=== PATIENT | male | born 1950 | race Caucasian/White ===

== ENCOUNTER 2018-08-25 10:43 | Day surgery (SDC) | payer OTHER, BC ==
--- OUTSIDE RECORDS SUMMARY | 2018-08-25 10:45 | XMS REPORT | Clinical Summary ---
:1950 Author Organization [facility] Address [address] [place] [address] Care Team Providers Name Role Phone Asked, No Pcp Primary Care Provider Unavailable Allergies Active Allergy Reactions Severity Noted Date Comments Peanut Hives 01/31/2017 Peanut Oil 01/31/2017 Current Medications Prescription Sig. Disp. Refills Start Date End Date Status metFORMIN (GLUCOPHAGE) 1,000 Take 1,000 mg Active mg tablet by mouth 2 (two) times a day with meals. linagliptin (TRADJENTA) 5 mg Take 5 mg by Active tablet mouth daily with breakfast. atorvastatin (LIPITOR) 20 MG Take 20 mg by Active tablet mouth daily. aspirin 325 MG tablet Take 325 mg by Active mouth daily. baclofen (LIORESAL) 10 MG Take 10 mg by Active tablet mouth 2 (two) times a day. bimatoprost (LUMIGAN) 0.01 % 1 drop nightly. Active ophthalmic drops azelastine (OPTIVAR) 0.05 % 1 drop 2 (two) Active ophthalmic solution times a day. metoprolol tartrate Take 50 mg by Active (LOPRESSOR) 50 mg tablet mouth 2 (two) times a day. gabapentin (NEURONTIN) 600 mg Take 600 mg by Active tablet mouth 2 (two) times a day. hydroCHLOROthiazide Take 25 mg by Active (HYDRODIURIL) 25 MG tablet mouth daily. losartan (COZAAR) 100 MG Take 100 mg by Active tablet mouth daily. Active Problems Not on file Family History Medical History Relation Name Comments Heart disease Brother Stroke Brother Heart disease Father Prostate cancer Father Stroke Father ALS Mother Diabetes Mother Hypertension Mother Relation Name Status Comments Brother Father Mother Social History Tobacco Use Types Packs/Day Years Used Date Never Smoker Alcohol Use Drinks/Week oz/Week Comments Yes occasionally Sex Assigned at Date Recorded Not on file Last Filed Vital Signs Not on file Plan of Treatment Health Maintenance Due Date Last Done Comments COLON CANCER SCREENING 2001 SHINGRIX VACCINE (#1) 2001 ZOSTER VACCINE 2011 PNEUMOCOCCAL POLYSACCHARIDE VACCINE AGE 65 AND OVER 01/06/2016 PNEUMOCOCCAL-13 01/06/2016 INFLUENZA VACCINE 05/28/2018 Results Not on fileafter 08/24/2017 Insurance Payer Benefit Plan / Group Subscriber ID Type Phone Address BCBS BCBS PAR/TRAD PLAN xxxxxxxxxxxx Indemnity MEDICARE MEDICARE PART A AND B xxxxxxxxxx Medicare [place], [place] Home: [facility] [address] [phone] [place], [place] [phone]
[2018-08-25] MEDS ORDERED: PHENYLEPHRINE 10% OPTH 5ML ONE (11:05)
[2018-08-25] MEDS ORDERED: CYCLOPENTOLATE 1% OPTH 2 ML ONE (11:05)
[2018-08-25] MEDS ORDERED: NA CHLORIDE 0.9% 500 ML ONE (11:05)
[2018-08-25] MEDS: TETRACAINE HCL 0.5% 2ML OPTH ONE ×2 (11:23→12:00)
[2018-08-25] MEDS: LIDOCAINE 2% MPF 5 ML VIAL ONE ×2 (11:24→12:01)
[2018-08-25] MEDS: BUPIVACAINE 0.25% PF 10 ML VIAL ONE ×2 (11:25→12:01)
[2018-08-25] MEDS ORDERED: CYCLOPENTOLATE 1% OPTH 2 ML OPTH ONE ×2 (11:28→11:33)
[2018-08-25] MEDS ORDERED: PHENYLEPHRINE 10% OPTH 5ML OPTH ONE ×2 (11:28→11:33)
[2018-08-25] MEDS ORDERED: BALANCED SALT IRRIG PLAIN 500 ML BTL IRR ONE (11:37)
[2018-08-25] MEDS ORDERED: EPINEPHRINE/PF 1 MG/ML AMP ONE (11:37)
[2018-08-25] MEDS ORDERED: DUOVISC 1 KIT OPTH ONE (11:37)
[2018-08-25] MEDS ORDERED: MOXIFLOXACIN HCL 10 DROPS/ML **OR USE OPTH ONE (11:38)
[2018-08-25] MEDS ORDERED: LIDOCAINE 2% MPF 5 ML VIAL ONE (11:54)
[2018-08-25] MEDS ORDERED: PROPOFOL 200 MG/20 ML VIAL IV ONE (11:54)
--- NOTE | 2018-08-25 12:58 | P.BOP ---
Preoperative diagnosis: Nuclear sclerotic cataract and regular astigmatism OD Postoperative diagnosis: Same Primary procedure: Phacoemulsification with Toric IOL OD Estimated blood loss: None Anesthesia: Local (Subtenon's infusion with anesthesia for cataract surgery) Complications: None Implants: [id number] +20.0 @ 23 Transferred to: Other (Day surgery) Condition: Good
[2018-08-25] MEDS ORDERED: NS 0.9% VIAL 10 ML ONE (13:14)
[2018-08-25 13:21] VITALS: BP 140/72; TEMP 96.1; O2SAT 98
--- NOTE | 2018-08-25 23:43 | OP ---
Date of Procedure: 08/25/2018 Surgeon: Makenzie Laurent MD Anesthesiologist: Hilton Galarza CRNA, Brii Dubose CRNA, and Marco Garcia M.D. Preoperative Diagnosis: Nuclear sclerotic cataract, right eye and regular astigmatism. Operation Performed: Phacoemulsification with toric intraocular lens implant, right eye. Anesthesia: Per cataract surgery. Complications: None. Description Of Procedure: In day surgery, the patient was prepped with Betadine and draped. A conju nctival incision was made in the inferior nasal quadrant with Hector scissors. A sub-Tenon block c onsisting of a 1:1 mixture of 2% Xylocaine and 0.25% bupivacaine was placed through the conjunctival incision with a blunt cannula. A Honan balloon was placed over the eye and the patient was transferr ed to the operating room. In the operating room the patient was prepped and draped in the usual sterile fashion for ophthalmic surgery. A lid speculum was placed in the right eye. Two paracentesis sites were made superiorly an d inferiorly in the limbal cornea. Viscoat was placed in the anterior chamber and a crescent blade w as used to make a corneal groove and tunnel, and a keratome was used to enter the anterior chamber. Provisc was placed in the anterior chamber and a 360 degree capsulotomy was performed with a cystitom e. The lens was hydrodissected with BSS and rotated freely. The lens was removed with a stop and ch op technique. A 5.59 phaco CDE was used to remove the lens. Residual cortex was removed with the ir rigation and aspiration. Provisc was placed in the capsular bag. A [id number] +20.0 at 23 lens was plac ed in the capsular bag without complications. Irrigation and aspiration was used to remove residual viscoelastic. The paracentesis sites were hydrated with BSS. The wound and paracentesis sites were inspected and found to be watertight. Vigamox 0.07 cc was placed intracamerally at the end of the pr ocedure. The eye was irrigated with balanced salt solution. The eye was patched with a soft cotton patch and Chamberlain metal shield. The patient was returned to day surgery in good condition. Comments: Discharge Instructions: Mr. Capone is discharged to home in good condition and is to follow up with Dr. Laurent in the morning. JHL/MODL Voice ID: [id number] Report ID: [id number]
== END 2018-08-25 13:24 | disposition home or self-care (01) ==
LOC: OR 10:43
PROVIDERS: ATTEND Ophthalmology Retina Specialist
PROC: 08RJ3JZ Replacement of Right Lens with Synthetic Substitute, Percutaneous Approach (ICD-10-PCS; principal; 2018-08-25 10:30)
DX: H25.11 Age-related nuclear cataract, right eye (principal); H52.221 Regular astigmatism, right eye; H40.10X0 Unspecified open-angle glaucoma, stage unspecified; E11.9 Type 2 diabetes mellitus without complications; I10 Essential (primary) hypertension; E78.00 Pure hypercholesterolemia, unspecified; Z79.82 Long term (current) use of aspirin; Z85.46 Personal history of malignant neoplasm of prostate; Z95.1 Presence of aortocoronary bypass graft; Z83.511 Family history of glaucoma; Z83.3 Family history of diabetes mellitus; Z80.9 Family history of malignant neoplasm, unspecified; Z82.49 Family history of ischemic heart disease and other diseases of the circulatory system; I25.10 Atherosclerotic heart disease of native coronary artery without angina pectoris
CPT/HCPCS: 66984; 82962; J0171; J2704; V2787

== ENCOUNTER 2018-10-13 09:56 | Day surgery (SDC) | payer OTHER, BC ==
--- OUTSIDE RECORDS SUMMARY | 2018-10-13 09:59 | XMS REPORT | Clinical Summary ---
:1950 Author Organization [facility] Address [address] [place] [address] Care Team Providers Name Role Phone Asked, No Pcp Primary Care Provider Unavailable Allergies Active Allergy Reactions Severity Noted Date Comments Peanut Hives 01/31/2017 Peanut Oil 01/31/2017 Medications Medication Sig Dispensed Refills Start Date End Date Status metFORMIN (GLUCOPHAGE) Take 1,000 mg 0 Active 1,000 mg tablet by mouth 2 (two) times a day with meals. linagliptin (TRADJENTA) 5 Take 5 mg by 0 Active mg tablet mouth daily with breakfast. atorvastatin (LIPITOR) 20 Take 20 mg by 0 Active MG tablet mouth daily. aspirin 325 MG tablet Take 325 mg 0 Active by mouth daily. baclofen (LIORESAL) 10 MG Take 10 mg by 0 Active tablet mouth 2 (two) times a day. bimatoprost (LUMIGAN) 0.01 1 drop 0 Active % ophthalmic drops nightly. azelastine (OPTIVAR) 0.05 % 1 drop 2 0 Active ophthalmic solution (two) times a day. metoprolol tartrate Take 50 mg by 0 Active (LOPRESSOR) 50 mg tablet mouth 2 (two) times a day. gabapentin (NEURONTIN) 600 Take 600 mg 0 Active mg tablet by mouth 2 (two) times a day. hydroCHLOROthiazide Take 25 mg by 0 Active (HYDRODIURIL) 25 MG tablet mouth daily. losartan (COZAAR) 100 MG Take 100 mg 0 Active tablet by mouth daily. Active Problems Not on file [...] Assigned at Date Recorded Not on file Job Start Date Occupation Industry Not on file Not on file Not on file Travel History Travel Start Travel End No recent travel history available. Last Filed Vital Signs Not on file Plan of Treatment Health Maintenance Due Date Last Done Comments COLON CANCER SCREENING 2001 SHINGLES VACCINES (1 of 2) 2001 PNEUMOCOCCAL POLYSACCHARIDE VACCINE AGE 65 AND OVER 01/06/2016 PNEUMOCOCCAL-13 01/06/2016 INFLUENZA VACCINE 05/28/2018 Results Not on fileafter 10/12/2017 Insurance Payer Benefit Plan / Group Subscriber ID Type Phone Address BCBS BCBS PAR/TRAD PLAN xxxxxxxxxxxx Indemnity MEDICARE MEDICARE PART A AND B xxxxxxxxxx Medicare [place], [place] Advance Directives Patient has advance care planning documents on file. For more information, please contact:[place] [address]
[2018-10-13] MEDS ORDERED: DUOVISC 1 KIT OPTH ONE (10:16)
[2018-10-13] MEDS ORDERED: NS 0.9% VIAL 10 ML ONE (10:16)
[2018-10-13] MEDS ORDERED: EPINEPHRINE/PF 1 MG/ML AMP ONE (10:16)
[2018-10-13] MEDS ORDERED: BALANCED SALT IRRIG PLAIN 500 ML BTL IRR ONE (10:16)
[2018-10-13] MEDS ORDERED: MOXIFLOXACIN HCL 10 DROPS/ML **OR USE OPTH ONE (10:16)
[2018-10-13] MEDS ORDERED: LIDOCAINE 2% MPF 5 ML VIAL ONE ×2 (10:25→11:07)
[2018-10-13] MEDS ORDERED: CYCLOPENTOLATE 1% OPTH 2 ML ONE (10:25)
[2018-10-13] MEDS ORDERED: TETRACAINE HCL 0.5% 2ML OPTH ONE (10:25)
[2018-10-13] MEDS ORDERED: NA CHLORIDE 0.9% 500 ML ONE (10:26)
[2018-10-13] MEDS ORDERED: BUPIVACAINE 0.25% PF 30 ML VIAL ONE (10:26)
[2018-10-13] MEDS ORDERED: PHENYLEPHRINE 10% OPTH 5ML ONE (10:26)
[2018-10-13] MEDS ORDERED: PHENYLEPHRINE 10% OPTH 5ML OPTH ONE ×2 (10:30→10:35)
[2018-10-13] MEDS ORDERED: CYCLOPENTOLATE 1% OPTH 2 ML OPTH ONE ×2 (10:30→10:35)
[2018-10-13] MEDS ORDERED: PROPOFOL 200 MG/20 ML VIAL IV ONE (11:07)
--- NOTE | 2018-10-13 12:20 | P.BOP ---
Preoperative diagnosis: Nuclear sclerotic cataract and open angle glaucoma OS Postoperative diagnosis: Same Primary procedure: Phacoemulsification with IOL OS Estimated blood loss: None Anesthesia: Local (Subtenon's infusion with anesthesia for cataract surgery) Complications: None Fluids & blood products: [id number] +20.5 @ 170 Transferred to: Other (Day surgery) Condition: Good
[2018-10-13 13:30] VITALS: BP 134/66; TEMP 96.3; O2SAT 100
--- NOTE | 2018-10-13 23:30 | OP ---
Date of Procedure: 10/13/2018 Surgeon: Makenzie Laurent MD Anesthesiologist: Hilton Galarza C.R.N.A. And Jeffry Chen M.D. Preoperative Diagnosis: Nuclear sclerotic cataract, regular astigmatism and open-angle glaucoma, OS (left eye). Operation Performed: Phacoemulsification with Toric intraocular lens implant, left eye. Anesthesia: Per cataract surgery. Complications: None. Description Of Procedure: In day surgery, the patient was prepped with Betadine and draped. A conjunctival incision was made in the inferior nasal quadrant with Hector scissors. A sub-Tenon block consisting of a 1:1 mixture of 2% Xylocaine and 0.25% bupivacaine was placed through the conjunctival incision with a blunt cannula. A Honan balloon was placed over the eye and the patient was transferred to the operating room. In the operating room, the patient was prepped and draped in the usual sterile fashion for ophthalmic surgery. A lid speculum was placed in the OS. Two paracentesis sites were made superiorly and inferiorly in the limbal cornea. Viscoat was placed in the anterior chamber and a crescent blade was used to make a corneal groove and tunnel, and a keratome was used to enter the anterior chamber. Provisc was placed in the anterior chamber and a 360-degree capsulotomy was performed with a cystitome. The lens was hydrodissected with BSS and rotated freely. The lens was removed with a stop and chop technique. A 4.85 phaco CDE was used to remove the lens. Residual cortex was removed with the irrigation and aspiration. Provisc was placed in the capsular bag. A [id number] +20.5 at 170 degrees lens was placed in the capsular bag without complications. Irrigation and aspiration were used to remove residual viscoelastic. The paracentesis sites were hydrated with BSS. The wound and paracentesis sites were inspected and found to be watertight. Vigamox 0.07 cc was placed intracamerally at the end of the procedure. The eye was irrigated with balanced salt solution. The eye was patched with a soft cotton patch and Chamberlain metal shield. The patient was returned to day surgery in good condition. Discharge Instructions: Mr. Capone is discharged to home in good condition and is to follow up with Dr. Laurent in the morning. ETHEL/VERONICA Voice ID: [id number] Report ID: [id number] MTDD
== END 2018-10-13 12:43 | disposition home or self-care (01) ==
LOC: OR 09:56
PROVIDERS: ATTEND Ophthalmology Retina Specialist
PROC: 08RK3JZ Replacement of Left Lens with Synthetic Substitute, Percutaneous Approach (ICD-10-PCS; principal; 2018-10-13 10:45)
DX: H25.12 Age-related nuclear cataract, left eye (principal); H40.10X0 Unspecified open-angle glaucoma, stage unspecified; H52.222 Regular astigmatism, left eye; E11.9 Type 2 diabetes mellitus without complications; I10 Essential (primary) hypertension; I51.9 Heart disease, unspecified; E78.00 Pure hypercholesterolemia, unspecified; Z91.010 Allergy to peanuts; Z85.46 Personal history of malignant neoplasm of prostate; Z95.1 Presence of aortocoronary bypass graft; Z83.511 Family history of glaucoma; Z83.3 Family history of diabetes mellitus; Z82.49 Family history of ischemic heart disease and other diseases of the circulatory system
CPT/HCPCS: 66984; 82962; J0171; J2704; V2787

== ENCOUNTER 2018-12-18 09:56 | Inpatient (IN) | payer OTHER, BC ==
--- OUTSIDE RECORDS SUMMARY | 2018-12-18 09:59 | XMS REPORT | Clinical Summary ---
:1950 Author Organization [facility] Address [address] [place] [address] Care Team Providers Name Role Phone Asked, [...] Comments COLON CANCER SCREENING 2001 SHINGLES VACCINES (#1) 2001 65+ PNEUMOCOCCAL VACCINE (1 of 2 - PCV13) 01/06/2016 PNEUMOCOCCAL POLYSACCHARIDE VACCINE AGE 65 AND OVER 01/06/2016 INFLUENZA VACCINE 05/28/2018 Results Not on fileafter 12/17/2017 Insurance Payer Benefit Plan / Group Subscriber ID Type Phone Address BCBS BCBS PAR/TRAD PLAN xxxxxxxxxxxx Indemnity MEDICARE MEDICARE PART A AND B xxxxxxxxxx Medicare [place], [place] Advance Directives Patient has advance care planning documents on file. For more information, please contact:You [address] [place] [address]
--- NOTE | 2018-12-18 11:14 | RAD REPORT ---
EXAM DESCRIPTION: RAD - Chest Single View - 12/18/2018 10:53 am CLINICAL HISTORY: Chest pain COMPARISON: September 2017 TECHNIQUE: AP portable chest image was obtained 1048 hour . FINDINGS: Lung volumes are low. No peripheral mass or consolidation. Interstitial pattern is not emelyn laura different when adjusting for the lower lung volumes. Failure or volume overload not suspected. S ternotomy wires are in place. Heart and vasculature are normal. No measurable pleural effusion and no pneumothorax. No acute bony abnormality seen. No acute aortic findings suspected. IMPRESSION: Shallow inspiration film without acute finding. No significant change from 2017.
[2018-12-18 11:34] LABS: Absolute Monocytes 0.4 K/uL (0.1-1.3); Absolute Neutrophil 3.2 K/uL (1.8-8.0); Basophils % 0.9 % (0-1.3); Eosinophils % 2.1 % (0-4.4); Hematocrit 40.9 % (39.6-49.0); Lymphocytes % 21.4 % (15.3-44.8); MPV 8.4 fL (7.6-11.3)
[2018-12-18 11:35] LABS: Protime INR 0.98
[2018-12-18 11:49] LABS: ALT/SGPT 70 U/L (12-78); AST/SGOT 36 U/L (15-37); Albumin 3.6 g/dL (3.4-5.0); Alkaline Phosphatase 84 U/L (45-117); BUN Blood Urea Nitrogen 18 mg/dL (7-18); Bicarbonate 27 mmol/L (21-32); Bilirubin Direct 0.2 mg/dL (0-0.2); Bilirubin Total 0.6 mg/dL (0.2-1.0); Glucose Level 183 mg/dL (74-106); NT PRO-BNP 93 pg/mL (<125); Potassium 3.9 mmol/L (3.5-5.1); Sodium Level 138 mmol/L (136-145); Troponin (Emerg Dept Use Only) < 0.02 ng/mL (0.0-0.045)
--- NOTE | 2018-12-18 12:01 | ER ---
Nurse's Notes [facility] Name: Meredith Capone Jr Age: 68 yrs Sex: Male : 1950 Arrival Date: 12/18/2018 Time: 09:59 Bed 17 Private MD: Justin Jasmine H Diagnosis: Chest pain, unspecified Presentation: 12/18 10:10 Presenting complaint: Patient states: "I was just sitting up watching TV when I started aa5 having chest pain on the left side of my chest, my left arm, and the left side of my back". Pt reports pain was relieved after taking a Nitro at 0915. Pt currently denies chest pain. 10:10 Transition of care: patient was not received from another setting of care. Onset of aa5 symptoms was December 18, 2018. Risk Assessment: Do you want to hurt yourself or someone else? Patient reports no desire to harm self or others. Initial Sepsis Screen: Does the patient meet any 2 criteria? No. Patient's initial sepsis screen is negative. Does the patient have a suspected source of infection? No. Patient's initial sepsis screen is negative. Care prior to arrival: None. 10:10 Method Of Arrival: Wheelchair aa5 10:10 Acuity: CARMINA 2 aa5 Triage Assessment: 10:20 General: Appears in no apparent distress. uncomfortable, Behavior is calm, cooperative, hj appropriate for age. Pain: Complains of pain in chest. Cardiovascular: Capillary refill < 3 seconds Patient's skin is warm and dry. Historical: - Allergies: 10:10 Peanut; aa5 - PMHx: 10:10 Diabetes - NIDDM; Hyperlipidemia; Hypertension; aa5 - PSHx: 10:10 CABG; Carpal Tunnel Repair; neck sx; aa5 - Immunization history:: Adult Immunizations. - Social history:: Smoking status: Patient/guardian denies using tobacco. - Ebola Screening: : No symptoms or risks identified at this time. Screenin:19 Abuse screen: Denies threats or abuse. Denies injuries from another. Nutritional hj screening: No deficits noted. Tuberculosis screening: No symptoms or risk factors identified. Fall Risk None identified. Assessment: 10:23 Pain: Pain radiates to back and left arm Pain began. hj 10:23 General: Appears in no apparent distress. uncomfortable, Behavior is calm, cooperative, hj appropriate for age. Neuro: Level of Consciousness is awake, alert, obeys commands, Oriented to person, place, time, situation, Appropriate for age. Cardiovascular: Capillary refill < 3 seconds Patient's skin is warm and dry. Respiratory: Airway is patent Respiratory effort is even, unlabored, Respiratory pattern is regular, symmetrical. GI: No signs and/or symptoms were reported involving the gastrointestinal system. : No signs and/or symptoms were reported regarding the genitourinary system. EENT: No signs and/or symptoms were reported regarding the EENT system. Derm: No signs and/or symptoms reported regarding the dermatologic system. Musculoskeletal: No signs and/or symptoms reported regarding the musculoskeletal system. 11:25 Reassessment: Patient and/or family updated on plan of care and expected duration. Pain hj level reassessed. Patient is alert, oriented x 3, equal unlabored respirations, skin warm/dry/pink. awaiting results. 12:52 Reassessment: Patient and/or family updated on plan of care and expected duration. Pain hj level reassessed. Patient is alert, oriented x 3, equal unlabored respirations, skin warm/dry/pink. for admit; awaiting room placement;. Vital Signs: 10:20 BP 135 / 71; Pulse 62; Resp 18; Temp 98.2(O); Pulse Ox 97% on R/A; Weight 97.98 kg; hj Height 6 ft. 0 in. (182.88 cm); Pain 4/10; 11:20 BP 165 / 71; Pulse 55; Resp 15; Pulse Ox 96% ; pc1 11:26 BP 135 / 71; Pulse 56; Resp 18; Pulse Ox 100% on R/A; hj 12:53 BP 128 / 70; Pulse 58; Resp 18; Pulse Ox 98% on R/A; hj 10:20 Body Mass Index 29.29 (97.98 kg, 182.88 cm) ED Course: 09:59 Patient arrived in ED. mr 10:00 Justin Jasmine DO is Private Physician. mr 10:10 Arm band placed on Patient placed in an exam room, on a stretcher. aa5 10:13 Dewayne Stout, AMADA is Primary Nurse. hj 10:18 Triage completed. aa5 10:23 Patient has correct armband on for positive identification. Placed in gown. Bed in low hj position. Call light in reach. Side rails up X2. Adult w/ patient. school bus monitor on. Pulse ox on. NIBP on. 10:24 Patient maintains SpO2 saturation greater than 95% on room air. hj 10:29 Mihai Mckinnon PA is PHCP. jr8 10:29 Greg Syed MD is Attending Physician. jr8 10:43 EKG done, by haz tech. reviewed by Greg Syed MD. at1 11:04 XRAY Chest (1 view) In Process Unspecified. EDMS 11:18 Lab(s) recollected, by me, sent to lab. Missed attempt(s): 22 gauge in left forearm. pc1 Bleeding controlled, band aid applied, catheter tip intact. IV discontinued, intact, bleeding controlled, No redness/swelling at site. Pressure dressing applied. 12:00 Wale Bran MD is Hospitalizing Provider. jr8 Administered Medications: No medications were administered Outcome: 12:00 Decision to Hospitalize by Provider. jr8 13:45 Attestation : i agree with the assessment and docs of SN [facility]. hj 13:45 Admitted to Med/surg accompanied by nurse, family with patient, via wheelchair. pc1 13:45 Condition: stable 13:45 Instructed on the need for admit. 13:47 Patient left the ED. pc1 Signatures: Dispatcher [employer] EDND Relga SharpeDolores, RN RN aa5 Mihai Mckinnon PA PA jr8 Azalea Mcconnell, traffic reporter EKG Tat1 Dewayne Stout RN RN hj Cantu, Patrick pc1
--- NOTE | 2018-12-18 12:04 | EDPHYS ---
Physician Documentation [facility] Name: Meredith Capone Jr Age: 68 yrs Sex: Male : 1950 Arrival Date: 12/18/2018 Time: 09:59 Bed 17 Private MD: Justin Jasmine H ED Physician Greg Syed HPI: 12/18 11:45 This 68 yrs old Male presents to ER via Wheelchair with complaints of Chest jr8 Pain, Arm Pain, Back Pain. 11:45 The patient or guardian reports chest pain that is located primarily in the substernal jr8 area. Onset: acutely, this morning, today. The pain radiates to the left arm, left neck, left back. Associated signs and symptoms: Pertinent positives: None. The chest pain is described as a pressure. Duration: The patient or guardian reports a single episode, that is still ongoing. Modifying factors: The symptoms are alleviated by ASA, NTG, X1. the symptoms are aggravated by activity. Severity of pain: At its worst the pain was moderate in the emergency department the pain is unchanged. The patient has experienced similar episodes in the past, a few times. The patient has not recently seen a physician. Patient with cardiac history. Over the past couple of weeks has had CP with exertion. Relieved by rest or NTG. Today had chest pain at rest. Again with relief by NTG. Historical: - Allergies: 10:10 Peanut; aa5 - PMHx: 10:10 Diabetes - NIDDM; Hyperlipidemia; Hypertension; aa5 - PSHx: 10:10 CABG; Carpal Tunnel Repair; neck sx; aa5 - Immunization history:: Adult Immunizations. - Social history:: Smoking status: Patient/guardian denies using tobacco. - Ebola Screening: : No symptoms or risks identified at this time. ROS: 11:45 Eyes: Negative for injury, pain, redness, and discharge, ENT: Negative for injury, jr8 pain, and discharge, Neck: Negative for injury, pain, and swelling, Respiratory: Negative for shortness of breath, cough, wheezing, and pleuritic chest pain, Abdomen/GI: Negative for abdominal pain, nausea, vomiting, diarrhea, and constipation, Back: Negative for injury and pain, MS/Extremity: Negative for injury and deformity, Skin: Negative for injury, rash, and discoloration, Neuro: Negative for headache, weakness, numbness, tingling, and seizure. 11:45 Cardiovascular: Positive for chest pain, Negative for edema, orthopnea, palpitations, paroxysmal nocturnal dyspnea. Exam: 11:45 Eyes: Pupils equal round and reactive to light, extra-ocular motions intact. Lids and jr8 lashes normal. Conjunctiva and sclera are non-icteric and not injected. Cornea within normal limits. Periorbital areas with no swelling, redness, or edema. ENT: Nares patent. No nasal discharge, no septal abnormalities noted. Tympanic membranes are normal and external auditory canals are clear. Oropharynx with no redness, swelling, or masses, exudates, or evidence of obstruction, uvula midline. Mucous membranes moist. Neck: Trachea midline, no thyromegaly or masses palpated, and no cervical lymphadenopathy. Supple, full range of motion without nuchal rigidity, or vertebral point tenderness. No Meningismus. Cardiovascular: Regular rate and rhythm with a normal S1 and S2. No gallops, murmurs, or rubs. Normal PMI, no JVD. No pulse deficits. Respiratory: Lungs have equal breath sounds bilaterally, clear to auscultation and percussion. No rales, rhonchi or wheezes noted. No increased work of breathing, no retractions or nasal flaring. Abdomen/GI: Soft, non-tender, with normal bowel sounds. No distension or tympany. No guarding or rebound. No evidence of tenderness throughout. Back: No spinal tenderness. No costovertebral tenderness. Full range of motion. Skin: Warm, dry with normal turgor. Normal color with no rashes, no lesions, and no evidence of cellulitis. MS/ Extremity: Pulses equal, no cyanosis. Neurovascular intact. Full, normal range of motion. Neuro: Awake and alert, GCS 15, oriented to person, place, time, and situation. Cranial nerves II-XII grossly intact. Motor strength 5/5 in all extremities. Sensory grossly intact. Cerebellar exam normal. Normal gait. Vital Signs: 10:20 BP 135 / 71; Pulse 62; Resp 18; Temp 98.2(O); Pulse Ox 97% on R/A; Weight 97.98 kg; hj Height 6 ft. 0 in. (182.88 cm); Pain 4/10; 11:20 BP 165 / 71; Pulse 55; Resp 15; Pulse Ox 96% ; pc1 11:26 BP 135 / 71; Pulse 56; Resp 18; Pulse Ox 100% on R/A; hj 12:53 BP 128 / 70; Pulse 58; Resp 18; Pulse Ox 98% on R/A; hj 10:20 Body Mass Index 29.29 (97.98 kg, 182.88 cm) hj MDM: 10:29 Patient medically screened. jr8 11:45 Differential diagnosis: abnormal EKG, acute myocardial infarction, anxiety, chest wall jr8 pain, congestive heart failure cholecystitis, Cholelithiasis costochondritis, esophagitis, gastritis, pancreatitis, pericarditis, pleurisy, pneumonia, pneumothorax, pulmonary embolus, stable angina, thoracic aortic disection, unstable angina. HEART Score: History: Moderately Suspicious (1), ECG: Normal (0), Age: > or = 65 years (2), Risk Factors: > or = 3 Risk factors for atherosclerotic disease (2), [Hypercholesterolemia] [Hypertension] [DM] [Obesity]. The patient was not given aspirin in the Emergency Department. Patient reports taking aspirin within the past 24 hours. Data reviewed: vital signs, nurses notes, lab test result(s), EKG, radiologic studies, plain films, and as a result, I will admit patient. Data interpreted: Pulse oximetry: on room air is 100 %. Interpretation: normal. Counseling: I had a detailed discussion with the patient and/or guardian regarding: the historical points, exam findings, and any diagnostic results supporting the discharge/admit diagnosis, lab results, radiology results, the need for further work-up and treatment in the hospital. 12:00 Physician consultation: Wale Bran MD was called at 12:00, was contacted at 12:00, jr8 regarding admission, to the telemetry unit. consult, patient's condition, and will see patient. 12/18 10:26 Order name: Basic Metabolic Panel 12/18 10:26 Order name: CBC with Diff 12/18 10:26 Order name: LFT's 12/18 10:26 Order name: Magnesium 12/18 10:26 Order name: NT PRO-BNP 12/18 10:26 Order name: PT-INR 12/18 10:26 Order name: Troponin (emerg Dept Use Only) 12/18 10:30 Order name: Basic Metabolic Panel; Complete Time: 11:51 [facility] 12/18 10:30 Order name: CBC with Diff; Complete Time: 11:45 [facility] 12/18 10:30 Order name: LFT's; Complete Time: 11:51 [facility] 12/18 10:30 Order name: Magnesium; Complete Time: 11:51 [facility] 12/18 10:30 Order name: NT PRO-BNP; Complete Time: 11:51 [facility] 12/18 10:30 Order name: PT-INR; Complete Time: 11:45 [facility] 12/18 10:30 Order name: Troponin (emerg Dept Use Only); Complete Time: : [facility] 12/18 10:26 Order name: XRAY Chest (1 view); Complete Time: : 12/18 10:26 Order name: EKG; Complete Time: : 12/18 10:26 Order name: Cardiac monitoring; Complete Time: : 12/18 10:26 Order name: EKG - Nurse/Tech; Complete Time: : 12/18 10:26 Order name: IV Saline Lock; Complete Time: : 12/18 10:26 Order name: Labs collected and sent; Complete Time: 12/18 10:26 Order name: O2 Per Protocol; Complete Time: : 12/18 10:26 Order name: O2 Sat Monitoring; Complete Time: : 12/18 10:30 Order name: XRAY Chest (1 view) [facility] 12/18 10:30 Order name: Cardiac monitoring; Complete Time: : [facility] 12/18 10:30 Order name: EKG - Nurse/Tech; Complete Time: : 12/18 10:30 Order name: IV Saline Lock; Complete Time: : [facility] 12/18 10:30 Order name: Labs collected and sent; Complete Time: : [facility] 12/18 10:30 Order name: O2 Per Protocol; Complete Time: : [facility] 12/18 10:30 Order name: O2 Sat Monitoring; Complete Time: : [facility] 12/18 10:49 Order name: Labs - recollect needed; Complete Time: 11:17 Administered Medications: No medications were administered Disposition: 12/18/18 12:00 Hospitalization ordered by Wale Bran for Observation. Preliminary diagnosis is Chest pain, unspecified. - Bed requested for Telemetry/MedSurg (observation). - Status is Observation. pc1 - Condition is Stable. - Problem is new. - Symptoms have improved. UTI on Admission? No Signatures: Dispatcher [employer] EDMS Porsche Powell, RN RN iw Dolores Carson RN RN aa5 Mihai Mckinnon PA PA jr8 Dewayne Stout RN RN hj Botello, Elizabeth eb Stewart, Lisa, RN RN ls4 Randy Olsen pc1 Corrections: (The following items were deleted from the chart) 13:02 12:00 Hospitalization Ordered by Wale Bran MD for Observation. Preliminary diagnosis eb is Chest pain, unspecified. Bed requested for Telemetry/MedSurg (observation). Status is Observation. Condition is Stable. Problem is new. Symptoms have improved. UTI on Admission? No. jr8 13:47 13:02 12/18/2018 12:00 Hospitalization Ordered by Wale Bran MD for Observation. pc1 Preliminary diagnosis is Chest pain, unspecified. Bed requested for Telemetry/MedSurg (observation). Status is Observation. Condition is Stable. Problem is new. Symptoms have improved. UTI on Admission? No. eb
[2018-12-18] MEDS ORDERED: ACETAMINOPHEN 500 MG TAB PO PRN (13:46)
[2018-12-18] MEDS ORDERED: NITROGLYCERIN 0.4 MG/TAB SL PRN (13:46)
[2018-12-18] MEDS ORDERED: MORPHINE 2 MG/ML SYR IV PRN (13:46)
[2018-12-18] MEDS ORDERED: GLUCAGON 1 MG/VIAL IM PRN (13:50)
[2018-12-18] MEDS ORDERED: D50W 25 GM/50 ML SYRINGE IV PRN (13:50)
[2018-12-18 14:07] VITALS: BMI 29.2
[2018-12-18] MEDS ORDERED: INFLUENZA VACCINE (for 3y+) 0.5 ML DOSE IMVAC ONE (15:00)
[2018-12-18 15:34] LABS: Urine Appearance CLEAR; Urine Bilirubin NEGATIVE (NEG); Urine Blood NEGATIVE (NEG); Urine Color YELLOW; Urine Glucose NEGATIVE (NEG); Urine Protein NEGATIVE (NEG); Urine pH 5.5 (5.0-7.0)
[2018-12-18 15:38] LABS: Urine Microscopic Reflex NO UMIC
[2018-12-18] MEDS: INSULIN -REGULAR HUMAN 50 UNIT/0.5 ML ML SQ SCH ×2 (16:30→21:00)
[2018-12-18] MEDS: ENOXAPARIN 40 MG/0.4 ML SQ SCH (16:54)
[2018-12-18] MEDS: HOME MED 1 EA UNK (Brinzolamide [Azopt] 1 DROP) OPTH SCH (21:00)
[2018-12-18] MEDS: BIMATOPROST OPHTH DROPS/2.5 ML BTL OPTH SCH (21:00)
[2018-12-18] MEDS: METOPROLOL TAR 50 MG TAB PO SCH (21:05)
[2018-12-18] MEDS: GABAPENTIN 300 MG CAP PO SCH (21:05)
[2018-12-18] MEDS: ATORVASTATIN 40 MG TAB PO SCH (21:06)
--- NOTE | 2018-12-18 21:39 | EKG ---
Test Date: 2018-12-18 Test Time: 10:16:10 Technical Business Analyst: GAMALIEL MEASUREMENT RESULTS: Intervals: Rate: 66 [place]: 172 QRSD: 90 QT: 418 QTc: 438 [place]: P: 58 [place]: 172 QRS: 49 T: 69 INTERPRETIVE STATEMENTS: Sinus rhythm with occasional premature ventricular complexes Nonspecific ST abnormality Abnormal ECG Compared to ECG 10/01/2017 11:00:05 Ventricular premature complex(es) now present Sinus bradycardia no longer present ST (T wave) deviation still present Electronically Signed On 12-18-18 21:36:37 INFRASTRUCTURE SOFTWARE ENGINEER by Quinton Hernandez
--- NOTE | 2018-12-19 01:31 | HP ---
Date of Admission: 12/18/2018 Code Status: Full. Consultants: Dr. Lyman with Cardiology. Chief Complaint: Chest pain. History Of Present Illness: The patient is a 68-year-old male with past medical history of coronary artery disease status post CABG, hypertension, hyperlipidemia, diabetes, congestive heart failure, who was in his usual state of health until day of admission when the patient had sudden onset of left- sided chest pain radiating to the left arm and neck. The patient states that this pain is similar to his previous episodes and therefore took a nitroglycerin which help to be alleviate his pain. The patient did take his full-dose aspirin as well this morning. Due to the concerns of his chest pain, the patient came into the ER. Of note, the patient had recent cardiac catheterization in September of 2017, which showed open bypass grafts. The patient's symptoms were constant, moderate, progressively worsening. In the ER , his vital signs were stable. He was afebrile. His workup revealed negative cardiac enzymes and EKG do not show any acute changes. Chest x-ray was clear. The patient was then referred for admission to rule out ACS. When seen in the ER, he was awake, alert, oriented x3, stating that his chest pain has improved. Past Medical History: Coronary artery disease, status post CABG and stent; diabetes non-insulin requiring type 2; glaucoma; hyperlipidemia; hypertension; bilateral renal cysts; congestive heart failure; prostate cancer, status post radiation in August 2015. Past Surgical History: Coronary artery bypass graft, cardiac stent, carpal tunnel repair, recent bilateral cataract surgery, neck disk surgery, ganglion cyst removal x2, tonsillectomy. Allergies: TO PEANUTS. NO KNOWN DRUG ALLERGIES. Medications: List reviewed. Family History: Mother has diabetes and ALS. Father has heart disease, stroke and cancer, specifically prostate cancer. Brother has heart disease, diabetes, and stroke. Social History: The patient is . 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 Lives at home. Is independent in his activities of daily living. Does not use any assistive ambulatory devices. Physical Examination: Vital Signs: Temperature 98.2, heart rate 62, blood pressure 135/71, respirations 18, O2 97% on room air. General: Awake, alert, oriented x3, elderly male, some mild distress. Nontoxic appearing. HEENT: Normocephalic, atraumatic. PERRLA. EOMI. Moist mucous membranes. Oropharynx is clear. Conjunctivae anicteric. Neck: Supple. No JVD. Trachea midline. CV: S1, S2. Regular rate and rhythm. Peripheral pulses present. Respiratory: Moving air well bilaterally. No wheezing or stridor. Gastrointestinal: Abdomen is soft, nontender, nondistended. Positive bowel sounds. No guarding or rigidity. Extremities: No clubbing, cyanosis, or edema. No calf tenderness. Neuro: Cranial nerves 2-12 intact grossly. No focal neurological deficit. Speech is normal. Skin: No rashes. Normal skin turgor. Psych: Mood is good. Affect is full. Insight and judgment are good. Laboratory Data: INR 0.98. Sodium 138, potassium 3.9, chloride 105, CO2 27, BUN 18, creatinine 0.78, glucose 183, calcium 9.2, magnesium 2. Troponin less than 0.02. Albumin 3.6. BNP 93. WBC 4.8, H and H 13.8 and 40.9, platelets 187. Chest x-ray, personally reviewed, shows shallow inspiration film without acute finding. No significant change from 2017. Assessment And Plan: A 68-year-old male with: 1. Unstable angina. The patient has history of coronary artery disease status post coronary artery bypass graft. Last cardiac catheterization was in September of 2017, which showed patent grafts. We will admit the patient to rule out acute coronary syndrome. Obtain serial cardiac enzymes and EKG. Monitor for signs of worsening chest pain. The patient has had recent echocardiogram in September, therefore we will not repeat echocardiogram at this visit. Dr. Lyman with Cardiology has been consulted. I spoke with him. He recommends observing the patient for acute coronary syndrome. If ruled out, to have him follow up in his office. 2. Diastolic heart failure, chronic, currently compensated. We will continue on fluid restriction and monitor I's and O's. 3. Essential hypertension, stable. Resume home medications as appropriate. 4. Diabetes mellitus type 2, non-insulin requiring, was started on sliding scale insulin and monitor blood glucose levels. 5. Dyslipidemia. We will continue statin. 6. Glaucoma. Continue eye drops. 7. Deep vein thrombosis prophylaxis addressed. Plan: Admit the patient to [facility], [facility] as observation. /VERONICA Voice ID: [id number] MTDD
[2018-12-19] MEDS: PANTOPRAZOLE 40MG TABLET PO SCH (05:59)
[2018-12-19 06:29] LABS: Absolute Lymphocytes (CBC) 1.2 K/uL (0.7-4.9); Absolute Monocytes 0.4 K/uL (0.1-1.3); Basophils % 0.6 % (0-1.3); Eosinophils % 2.1 % (0-4.4); Hematocrit 38.5 % (39.6-49.0); Lymphocytes % 25.6 % (15.3-44.8); MPV 8.6 fL (7.6-11.3); Monocytes % 7.8 % (3.3-12.3); RBC Red Blood Cell Count 4.26 M/uL (4.33-5.43)
[2018-12-19 06:57] LABS: BUN Blood Urea Nitrogen 14 mg/dL (7-18); Bicarbonate 30 mmol/L (21-32); Glucose Level 159 mg/dL (74-106); HDL Cholesterol 31 mg/dL (40-60); LDL Cholesterol, Calculated 60 (<130); Potassium 3.6 mmol/L (3.5-5.1); Sodium Level 140 mmol/L (136-145)
[2018-12-19] MEDS: INSULIN -REGULAR HUMAN 50 UNIT/0.5 ML ML SQ SCH ×5 (07:30→21:00)
[2018-12-19] MEDS ORDERED: REGADENOSON 0.4 MG/5 ML SYR IV ONE (08:48)
[2018-12-19] MEDS ORDERED: LOSARTAN POTASSIUM 50 MG TABLET PO SCH (09:00)
[2018-12-19] MEDS: HOME MED 1 EA UNK (Brinzolamide [Azopt] 1 DROP) OPTH SCH ×2 (09:00→21:00)
[2018-12-19] MEDS: LOSARTAN/HCTZ 50-12.5 PO SCH ×2 (12:03→12:04)
[2018-12-19] MEDS: ENOXAPARIN 40 MG/0.4 ML SQ SCH (12:04)
[2018-12-19] MEDS: METOPROLOL TAR 50 MG TAB PO SCH ×2 (12:04→21:09)
[2018-12-19] MEDS: GABAPENTIN 300 MG CAP PO SCH ×3 (12:04→21:09)
[2018-12-19] MEDS: ASPIRIN 325 MG TAB PO SCH (12:04)
[2018-12-19] MEDS: POTASSIUM CL SA 10 MEQ TAB PO SCH (12:05)
--- NOTE | 2018-12-19 12:11 | RAD REPORT ---
EXAM DESCRIPTION: NM - Rest Stress Cardiac Imaging - 12/19/2018 11:57 am CLINICAL HISTORY: Chest pain COMPARISON: None. TECHNIQUE: The patient was administered approximately 10 mCi of Tc 99m Sestamibi prior to resting SP ECT imaging of the heart. The patient was then administered approximately 30 mCi of Tc 99m Sestamibi following exercise or pharmacologic stress. Multiplanar SPECT images were reviewed. FINDINGS: The end diastolic volume is 86 ml, the end systolic volume is 35 ml, and the ejection frac tion is 60 %. Stress imaging shows diminished activity along the mid and base portion of the anterior wall not pres ent on rest imaging. Lateral, inferior and septal angel show no stress ischemia or scarring changes. IMPRESSION: Anterior wall stress ischemia identified. No focal scarring changes seen. Ventricular volumes and ejection fraction are normal range.
--- NOTE | 2018-12-19 12:18 | CON ---
History Of Present Illness: Mr. Capone is a 68-year-old man and he came to the hospital because of c hest pain. Mr. Capone has a history of coronary heart disease with bypass surgery. We did a cardiac cath September 2017, so about a year and 3 months ago. At that time, we found that his coronary situ ation looked good. He has been doing a really good job of controlling risk factors, gave up tobacco, alcohol use minimal. He has aggressive antiplatelet therapy exercises. He was not having any exert ional pain. He was watching TV when he had chest pain. Since he has been in the hospital, the cardi ac enzymes are normal, EKGs unremarkable. Physical Examination: General: He is 6 feet tall, 216 pounds, overweight, alert, oriented, pleasant, not in distress. Lungs: Clear. Heart: Normal. Abdomen: Soft. Extremities: Normal. Diagnostic Data: The EKG does not show infarction, injury, or ischemia. There is nonspecific ST abn ormality and a few PVCs. His chest x-ray is within normal limits showing post bypass changes. Impression: This is probably noncardiac pain, but we will do a stress test. We will see if we want to do a repeat cardiac cath after the results of the stress test are known. ALEXI Voice ID: [id number] Report ID: [id number]
--- NOTE | 2018-12-19 14:58 | TREADPHA ---
DX: CHEST PAIN Date of Study: 12/19/2018 Ht: 6 0 Wt: 216 lb 0 oz Consulting Physician: CLEMENTINA MEDICATIONS: TYLENOL, ASPIRIN, LIPITOR, DEXTROSE, LOVENOX, GLUCAGEN, NEURONTIN HISTORY: 68 YEAR OLD MALE WITH COMPLAINTS OF CHEST PAIN. MEDICAL HISTORY OF DIABETES MELLITUS, HYPERLIPIDEMIA, HYPERTENSION, CABG AND PROSTATE CANCER. PHYSICIAL EXAMINATION: RESTING B.P.: 150/85 RESTING H.R.: 67 RESTING EKG: NORMAL PROTOCOL: LEXISCAN EXERCISE TIME: 3:30 B.P. AT PEAK STRESS: 159/77 IMPRESSION: LEXISCAN INJECTED. CARDIOLITE INJECTED PER PROTOCOL. SEE NUCLEAR MEDICINE REPORT. NO SUPRAVENTRICULAR TACHYCARDIA. NO VENTRICULAR TACHYCARDIA. MULTIPLE PREMATURE VENTRICULAR COMPLEXES. CHEST PAIN 1/10 ON PAIN SCALE AFTER ADMINISTRATION OF LEXISCAN. CHEST PAIN RESOLVED IN RECOVERY. ANTERIOR T WAVE INVERSION WITH LEXISCAN STRESS.
[2018-12-19] MEDS: BIMATOPROST OPHTH DROPS/2.5 ML BTL OPTH SCH (21:00)
[2018-12-19] MEDS: ATORVASTATIN 40 MG TAB PO SCH (21:09)
--- NOTE | 2018-12-19 22:14 | PN ---
Date of Progress Note: 12/19/2018 Subjective: The patient was seen and examined. Chart reviewed and case discussed with RN and Dr. Hernandez. The patient states his pain is intermittent, however, better than yesterday. Medications: List reviewed. Physical Examination: Vital Signs: Temperature 98.4, heart rate 54, blood pressure 136/69, respirations 18, and O2 96% on room air. General: Awake, alert, and oriented x3, elderly male. CV: S1, S2. Regular rate and rhythm. Peripheral pulses present. Respiratory: Moving air well bilaterally. No wheezing. Gastrointestinal: Abdomen is soft, nontender, and nondistended. Positive bowel sounds. Extremities: No clubbing, cyanosis, or edema. Neurologic: Nonfocal. Laboratory Data: Sodium 140, potassium 3.6, chloride 104, CO2 30, BUN 14, creatinine 0.69, glucose 159, and calcium 8.8. Triglycerides 265, cholesterol 144, LDL 60, and HDL 31. WBC 4.7, H and H 13.1 and 38.5, and platelets 168. Pharmacological stress test showed chest pain on administration of Lexiscan, result in recovery; anterior T-wave inversion with Lexiscan stress. Cardiac stress test shows anterior wall stress ischemia identified. No focal scarring changes seen. Assessment And Plan: A 68-year-old male with: 1. Unstable angina. The patient's stress test was positive. Anterior ischemic was seen. Dr. Hernandez plans to do a cardiac catheterization on Saturday. The patient does have high-risk factors including previous CABG, heart failure , hypertension, diabetes, and dyslipidemia. 2. Diastolic heart failure, chronic, compensated. We will continue home medications, fluid restriction. 3. Essential hypertension, stable. 4. Diabetes mellitus type 2, non insulin requiring. We will continue sliding scale insulin and monitor blood glucose levels. 5. Dyslipidemia. Continue statin. 6. Glaucoma. Continue eyedrops. 7. Deep vein thrombosis prophylaxis with Lovenox. Cardiac catheterization on Saturday. /VERONICA Voice ID: [id number] Report ID: [id number] MTDD
[2018-12-20] MEDS: PANTOPRAZOLE 40MG TABLET PO SCH (05:32)
[2018-12-20] MEDS: INSULIN -REGULAR HUMAN 50 UNIT/0.5 ML ML SQ SCH ×4 (07:30→20:13)
[2018-12-20] MEDS: ENOXAPARIN 40 MG/0.4 ML SQ SCH (08:48)
[2018-12-20] MEDS: GABAPENTIN 300 MG CAP PO SCH ×3 (08:48→20:11)
[2018-12-20] MEDS: ASPIRIN 325 MG TAB PO SCH (08:48)
[2018-12-20] MEDS: LOSARTAN/HCTZ 50-12.5 PO SCH (08:48)
[2018-12-20] MEDS: POTASSIUM CL SA 10 MEQ TAB PO SCH (08:48)
[2018-12-20] MEDS: METOPROLOL TAR 50 MG TAB PO SCH ×2 (08:49→20:12)
[2018-12-20] MEDS: HOME MED 1 EA UNK (Brinzolamide [Azopt] 1 DROP) OPTH SCH ×2 (08:52→20:12)
[2018-12-20] MEDS ORDERED: PRASUGREL (EFFIENT) 10 MG TAB PO ONE (09:31)
--- NOTE | 2018-12-20 12:35 | PN ---
Mr. Capone continues to have chest pain. His stress test shows anterior ischemia. Has been loaded w ith prasugrel. Increase the beta-blockers, give him Plavix every day until we can do a cardiac cath. He is pain free now. No arrhythmia or EKG changes. BECKY/VERONICA Voice ID: [id number] Report ID: [id number]
--- NOTE | 2018-12-20 13:32 | PN ---
Date of Progress Note: 12/20/2018 Patient seen and examined, chart reviewed, and case discussed with RN. The patient had an abnormal stress test. The patient is still having some ongoing chest tightness along with some shortness of breath with minimal exertion, especially when he went to the bathroom and back. Medications: List reviewed. Physical Examination: Vital Signs: Temperature 97.8, heart rate 55, blood pressure 139/75, respirations 16, O2 96% on room air. General: Awake, alert, oriented x3, in some mild distress. Elderly male. CV: S1, S2. Peripheral pulses present. Sinus bradycardia. Respiratory: Clear to auscultation bilaterally. No wheezing or stridor. Gastrointestinal: Abdomen is soft, nontender, nondistended. Positive bowel sounds. Extremities: No clubbing, cyanosis, or edema. Neurologic: Nonfocal. Laboratory Data: Pending. Assessment And Plan: A 68-year-old male with unstable angina. Stress test positive for anterior ischemia. Will be scheduled for catheterization on Saturday. Appreciate Dr. Hernandez' input. 1. Diastolic heart failure, chronic, compensated. Continue home medications. Continue fluid restriction. Monitor I's and O's. 2. Essential hypertension, stable. 3. Sinus bradycardia, asymptomatic. 4. Diabetes mellitus type 2, [id number], with hyperglycemia. We will continue sliding scale insulin. Monitor blood glucose levels. 5. Dyslipidemia. Statin. 6. Glaucoma. Continue eye drops. 7. DVT prophylaxis with Lovenox. /VERONICA Voice ID: [id number] Report ID: [id number] OLE
[2018-12-20] MEDS: ATORVASTATIN 40 MG TAB PO SCH (20:12)
[2018-12-20] MEDS: BIMATOPROST OPHTH DROPS/2.5 ML BTL OPTH SCH (20:13)
[2018-12-21] MEDS: PANTOPRAZOLE 40MG TABLET PO SCH (05:34)
[2018-12-21] MEDS: INSULIN -REGULAR HUMAN 50 UNIT/0.5 ML ML SQ SCH ×4 (07:30→21:00)
[2018-12-21] MEDS: ENOXAPARIN 40 MG/0.4 ML SQ SCH (08:55)
[2018-12-21] MEDS: METOPROLOL TAR 50 MG TAB PO SCH ×2 (08:56→21:14)
[2018-12-21] MEDS: GABAPENTIN 300 MG CAP PO SCH ×3 (08:56→21:16)
[2018-12-21] MEDS: POTASSIUM CL SA 10 MEQ TAB PO SCH (08:56)
[2018-12-21] MEDS: ASPIRIN 325 MG TAB PO SCH (08:56)
[2018-12-21] MEDS: LOSARTAN/HCTZ 50-12.5 PO SCH (08:57)
[2018-12-21] MEDS: CLOPIDOGREL 75 MG TABLET PO SCH (08:58)
[2018-12-21] MEDS: HOME MED 1 EA UNK (Brinzolamide [Azopt] 1 DROP) OPTH SCH ×2 (08:59→21:00)
--- NOTE | 2018-12-21 18:07 | PN ---
Date of Progress Note: 12/21/2018 Subjective: The patient was seen and examined. Chart reviewed and case discussed with RN and Dr. Quintin tian. The patient states his chest pain is better. Still has some shortness of breath with activity . Medications: List reviewed. Physical Examination: Vital Signs: Temperature 97.6, heart rate 55, blood pressure 109/66, respirations 18, O2 97% on 1 L via nasal cannula. General: Awake, alert, and oriented x3 without any acute distress. CV: S1, S2. Sinus bradycardia. Pulses present. Respiratory: Moving air well bilaterally. No wheezing. Gastrointestinal: Abdomen is soft, nontender, nondistended. Positive bowel sounds. Extremities: No clubbing, cyanosis, or edema. Neurologic: Nonfocal. Laboratory Data: Glucose range from 155 to 170. Assessment And Plan: A 68-year-old male with: 1.Unstable angina. Cardiac catheterization scheduled for tomorrow. 2.Diastolic heart failure, chronic, compensated. 3.Essential hypertension. 4.Sinus bradycardia, asymptomatic, tolerating beta blockers. 5.Diabetes mellitus type 2, non-insulin requiring with hyperglycemia. Continue sliding scale insuli n and Accu-Cheks. 6.Dyslipidemia. Continue statin. 7.Glaucoma. Continue eyedrops. 8.Deep venous thrombosis prophylaxis with Lovenox. PLAN: Cardiac cath in fern[place] BRAN/VERONICA Voice ID: [id number] Report ID: [id number]
[2018-12-21] MEDS: BIMATOPROST OPHTH DROPS/2.5 ML BTL OPTH SCH (21:00)
[2018-12-21] MEDS: ATORVASTATIN 40 MG TAB PO SCH (21:13)
[2018-12-22] MEDS: PANTOPRAZOLE 40MG TABLET PO SCH (06:30)
[2018-12-22] MEDS: INSULIN -REGULAR HUMAN 50 UNIT/0.5 ML ML SQ SCH ×4 (07:30→20:10)
[2018-12-22] MEDS: HOME MED 1 EA UNK (Brinzolamide [Azopt] 1 DROP) OPTH SCH ×2 (09:00→20:10)
[2018-12-22] MEDS: GABAPENTIN 300 MG CAP PO SCH ×3 (09:00→20:09)
[2018-12-22] MEDS: METOPROLOL TAR 50 MG TAB PO SCH ×2 (09:14→20:09)
[2018-12-22] MEDS: LOSARTAN/HCTZ 50-12.5 PO SCH (09:14)
[2018-12-22] MEDS: ASPIRIN 325 MG TAB PO SCH (09:14)
[2018-12-22] MEDS: CLOPIDOGREL 75 MG TABLET PO SCH (09:14)
[2018-12-22] MEDS ORDERED: NA CHLORIDE 0.9% 500 ML ONE (13:57)
[2018-12-22] MEDS ORDERED: HEPA 1000U/500MLS 2,000 UNIT/1,000 ML BAG IV ONE (13:57)
[2018-12-22] MEDS ORDERED: MIDAZOLAM HCL 2 MG/2 ML INJ ONE ×3 (14:07→14:21)
[2018-12-22] MEDS ORDERED: ATROPINE SULF 1 MG/10 ML SYR IV ONE (14:07)
[2018-12-22] MEDS ORDERED: FENTANYL CITR 100 MCG/2 ML ONE (14:08)
[2018-12-22] MEDS ORDERED: LIDOCAINE 1% MPF 30 ML VIAL ONE (14:12)
[2018-12-22] MEDS ORDERED: CLOPIDOGREL 75 MG TABLET ONE (15:14)
[2018-12-22] MEDS ORDERED: ACETAMINOPHEN 325 MG TABLET PO PRN (16:23)
[2018-12-22] MEDS: NA CHLORIDE 0.9% 1,000 ML IV SCH (17:00)
[2018-12-22] MEDS: POTASSIUM CL SA 10 MEQ TAB PO SCH (17:23)
[2018-12-22] MEDS: BIMATOPROST OPHTH DROPS/2.5 ML BTL OPTH SCH (20:10)
[2018-12-22] MEDS ORDERED: ATORVASTATIN 80 MG TAB PO SCH (21:00)
--- NOTE | 2018-12-22 21:47 | PN ---
Subjective: The patient is seen and examined. Chart reviewed and case discussed with RN and Dr. Edmond savage. The patient did receive a stent after going for heart catheterization. Medications: List reviewed. Objective: Vital Signs: Temperature 98, heart rate 57, blood pressure 148/71, respirations 18, O2 s at 95% on 2 L via nasal cannula. General: Awake, alert, oriented x3, not in any acute distress. Elderly male. CV: S1, S2. Regular rate and rhythm. Peripheral pulses present. Respiratory: Moving air well bilaterally. No wheezing or stridor. Gastrointestinal: Abdomen is soft, nontender, and nondistended. Positive bowel sounds. Extremities: No clubbing, cyanosis, or edema. Neurologic: Nonfocal. Laboratory Data: Pending blood glucose levels, ranging between 156-136. Assessment And Plan: A 68-year-old male with; 1.Unstable angina. Cardiac catheterization indeed showed some abnormality. The patient had a stent placed. We will continue with chest pain guidelines. Appreciate Dr. Hernandez' input. 2.Chronic diastolic heart failure, stable. Continue to monitor I's and O's. Fluid; continue fluid restriction. 3.Essential hypertension, stable on home medications. We will continue to monitor. 4.Sinus bradycardia, asymptomatic, tolerating beta-blockers. The patient has severe coronary artery disease. We will keep beta-blockers on board. 5.Diabetes mellitus type 2, xbq-[id number]-gnniopbtg, with hyperglycemia. We will continue sliding sca le insulin and Accu-Cheks. 6.Dyslipidemia. Continue statin. 7.Glaucoma. Continue eye drops. 8.DVT prophylaxis with Lovenox. PLAN: Continue to monitor overnight. Discharge once cleared by Cardiology. /VERONICA Voice ID: [id number] Report ID: [id number]
[2018-12-23] MEDS: NA CHLORIDE 0.9% 1,000 ML IV SCH (05:38)
[2018-12-23] MEDS: PANTOPRAZOLE 40MG TABLET PO SCH (05:39)
[2018-12-23 06:11] LABS: Absolute Lymphocytes (CBC) 1.1 K/uL (0.7-4.9); Absolute Monocytes 0.4 K/uL (0.1-1.3); Absolute Neutrophil 4.2 K/uL (1.8-8.0); Basophils % 0.5 % (0-1.3); Eosinophils % 1.9 % (0-4.4); Hematocrit 40.9 % (39.6-49.0); Lymphocytes % 18.9 % (15.3-44.8); MPV 8.5 fL (7.6-11.3); Monocytes % 7.6 % (3.3-12.3); RBC Red Blood Cell Count 4.59 M/uL (4.33-5.43)
[2018-12-23 06:30] LABS: ALT/SGPT 88 U/L (12-78); AST/SGOT 44 U/L (15-37); Albumin 3.5 g/dL (3.4-5.0); Alkaline Phosphatase 85 U/L (45-117); BUN Blood Urea Nitrogen 19 mg/dL (7-18); Bicarbonate 31 mmol/L (21-32); Bilirubin Total 1.2 mg/dL (0.2-1.0); Glucose Level 156 mg/dL (74-106); Potassium 3.8 mmol/L (3.5-5.1); Protein, Total 6.8 g/dL (6.4-8.2); Sodium Level 137 mmol/L (136-145)
[2018-12-23] MEDS: INSULIN -REGULAR HUMAN 50 UNIT/0.5 ML ML SQ SCH ×2 (07:30→12:21)
[2018-12-23] MEDS: GABAPENTIN 300 MG CAP PO SCH ×2 (08:17→14:22)
[2018-12-23] MEDS: METOPROLOL TAR 50 MG TAB PO SCH (08:18)
[2018-12-23] MEDS: CLOPIDOGREL 75 MG TABLET PO SCH (08:18)
[2018-12-23] MEDS: ASPIRIN 325 MG TAB PO SCH (08:18)
[2018-12-23] MEDS: POTASSIUM CL SA 10 MEQ TAB PO SCH (08:18)
[2018-12-23] MEDS: LOSARTAN/HCTZ 50-12.5 PO SCH (08:18)
[2018-12-23] MEDS: HOME MED 1 EA UNK (Brinzolamide [Azopt] 1 DROP) OPTH SCH (08:23)
[2018-12-23 12:38] VITALS: O2SAT 95
[2018-12-23 12:55] VITALS: BP 132/72; TEMP 98.5
--- NOTE | 2018-12-24 10:09 | PN ---
Date of Progress Note: 12/23/2018 Mr. Capone is a 68-year-old white male, known to us from previous office visits and admissions, admit ratna on 12/19/2018 with a non-ST elevation myocardial infarction, unstable angina. The patient underw ent a stent for one of his grafts yesterday by Dr. Hernandez. Overnight, he had no groin issues, no hem atoma. Telemetry showed normal rhythm without any arrhythmia. The patient was not having any furthe r chest pain. I suggest he goes home today on his home medications plus the Plavix, and we will see him in the office in the next 2 weeks. PAVAN/VERONICA Voice ID: [id number] Report ID: [id number]
--- NOTE | 2018-12-24 17:43 | OP ---
Date of Procedure: 12/22/2018 Surgeon: Quinton Hernandez MD Procedures: Left heart catheterization, coronary angiography, angiography of the saphenous vein chirag t to the obtuse marginal, angiography of internal mammary graft on the left to the left anterior desc ending, coronary artery, and percutaneous coronary intervention of the natives and posterolateral bra nch of the circumflex artery. Procedure Findings: The patient had a normal right coronary artery. The graft to the obtuse margina l was a saphenous vein graft, widely patent, free of any stenosis. Normal flow. The graft to the LA D was a left internal mammary graft free of any significant stenosis. The [place] left main was mildl y diseased, [place] LAD totally occluded, distal LAD supplied by the graft. The first obtuse marginal is totally occluded and is supplied by a vein graft. The posterolateral branch was diffusely diseas ed, fairly small vessel, 2 to 2-1/2 mm in diameter with multiple lesions throughout it, the very dist al one of 90% and mid one 70-80%. After we angioplastied this and put 2 stents in it, the stenosis w as less than 10% and the COLT grade flow was 3. Procedure In Detail: The patient had a non-ST elevation [place], unstable angina symptoms, brought to the cardiac laboratory director in a fasting state, prepared and draped in the usual sterile fashion. Right femora l approach was used to anesthetize the tissues around the right femoral artery. We entered the arter y using an 18-gauge needle and used a short tipped J-wire to place a 4-Mohawk sheath. We used this t o angiogram all of the arteries. We used a JL4 for the left, 3DRC to angiogram right coronary and sa phenous vein graft and internal mammary graft. When we decided to put a stent in the posterolateral branch of the circumflex, we exchanged for a 6-Mohawk sheath, gave Angiomax, demonstrated the activat ed clotting time greater than 400 seconds. We used an XB 3.5 with side holes as a guide catheter. W e used a 2.5 x 15 Emerge balloon. We used a Evans wire to cross the lesions. We pre-dilated. We p laced a 2.5 x 12 Synergy stent across the distal lesion and a 2.5 x 20 across the more proximal lesio n. At the end of the procedure, the angiographic result was excellent. Wires were withdrawn. Final pictures were taken. Catheter was removed. Actually the more proximal 1 was a Synergy 2.5 x 10 faustino nt. Closed the arteriotomy using an Angio-Seal device. There were no complications from the procedu re. BECKY/VERONICA Voice ID: [id number] Report ID: [id number]
--- NOTE | 2018-12-26 14:11 | P.DS ---
Admission Date: 12/19/18 Discharge Date: 12/23/18 Disposition: ROUTINE DISCHARGE Discharge Condition: GOOD Reason for Admission: Chest Pain Consultations: Cardiology Procedures: 12/22/2018: Cardiac catheterization and stent placement. Brief History of Present Illness: : The patient is a 68-year-old male with past medical history of coronary artery disease status post CABG, hypertension, hyperlipidemia, diabetes, congestive heart failure, who was in his usual state of health until day of admission when the patient had sudden onset of left-sided chest pain radiating to the left arm and neck. The patient states that this pain is similar to his previous episodes and therefore took a nitroglycerin which help to be alleviate his pain. The patient did take his full-dose aspirin as well this morning. Due to the concerns of his chest pain, the patient came into the ER. Of note, the patient had recent cardiac catheterization in September of 2017, which showed open bypass grafts. The patient's symptoms were constant, moderate, progressively worsening. In the ER, his vital signs were stable. He was afebrile. His workup revealed negative cardiac enzymes and EKG do not show any acute changes. Chest x-ray was clear. The patient was then referred for admission to rule out ACS. When seen in the ER, he was awake, alert, oriented x3, stating that his chest pain has improved. Hospital Course: Patient was admitted for unstable angina. She was started on chest pain guidelines. Cardiology was consulted. She underwent a cardiac catheterization, which showed some abnormality and patient had a stent placed. She did have sinus bradycardia but asymptomatic and seemed to be tolerating beta blockers, whic hwas continued. She remained otherwise stable throughout the stay. She was then cleared for discharge by cardiology. She was discharged home in a stable manner. Vital Signs/Physical Exam: Temp Pulse Resp BP Pulse Ox 98.5 F 76 16 132/72 95 12/23/18 12:00 12/23/18 12:00 12/23/18 12:12/23/18 12:12/23/18 12:00 General: Alert, In no apparent distress, Oriented x3 HEENT: Atraumatic, PERRLA, EOMI Neck: Supple, JVD not distended Respiratory: Clear to auscultation bilaterally, Normal air movement Cardiovascular: Regular rate/rhythm, Normal S1 S2 Gastrointestinal: Normal bowel sounds, No tenderness Musculoskeletal: No tenderness Integumentary: No rashes Neurological: Normal speech, Normal tone, Normal affect Lymphatics: No axilla or inguinal lymphadenopathy Laboratory Data at Discharge: WBC 5.9 K/uL (4.3-10.9) D 12/23/18 05:25 Hgb 14.0 g/dL (13.6-17.9) 12/23/18 05:25 Hct 40.9 % (39.6-49.0) 12/23/18 05:25 Plt Count 187 K/uL (152-406) 12/23/18 05:25 PT 11.6 SECONDS (9.5-12.5) 12/18/18 11:13 INR 0.98 12/18/18 11:13 Sodium 137 mmol/L (136-145) 12/23/18 05:25 Potassium 3.8 mmol/L (3.5-5.1) 12/23/18 05:25 BUN 19 mg/dL (7-18) H 12/23/18 05:25 Creatinine 0.77 mg/dL (0.55-1.3) 12/23/18 05:25 Glucose 156 mg/dL (74-106) H 12/23/18 05:25 Magnesium 2.0 mg/dL (1.8-2.4) 12/18/18 11:13 Total Bilirubin 1.2 mg/dL (0.2-1.0) H 12/23/18 05:25 AST 44 U/L (15-37) H 12/23/18 05:25 ALT 88 U/L (12-78) H 12/23/18 05:25 Alkaline Phosphatase 85 U/L (45-117) 12/23/18 05:25 Troponin I < 0.02 ng/mL (0.0-0.045) 12/18/18 17:46 Triglycerides 265 mg/dL (<150) H 12/19/18 05:56 Cholesterol 144 mg/dL (<200) 12/19/18 05:56 HDL Cholesterol 31 mg/dL (40-60) L 12/19/18 05:56 Cholesterol/HDL Ratio 4.65 12/19/18 05:56 Home Medications: Aspirin 325 mg PO DAILY 12/03/16 Gabapentin [Neurontin] 600 mg PO TID 12/03/16 Losartan/Hydrochlorothiazide [Losartan-Hctz 100-25 mg Tab] 1 each PO DAILY 12/03 Metoprolol Tartrate [Lopressor*] 50 mg PO BID 12/03/16 Bimatoprost [Lumigan Opthalmic Drops*] 1 drops OPTH BEDTIME 09/29/17 Brinzolamide [Azopt] 1 drop OPTH BID 09/29/17 Metformin ER [Glucophage ER*] 1,000 mg PO BID 09/29/17 Ubidecarenone/Vit E Acetate [Co Q-10 100 mg Softgel] 1 each PO DAILY 09/29/17 Atorvastatin Calcium [Lipitor*] 40 mg PO DAILY 08/13/18 Magnesium Oxide [Magnesium] 400 mg PO DAILY 08/13/18 Meloxicam 7.5 mg PO DAILY 08/13/18 Omeprazole [Prilosec] 40 mg PO DAILY 08/13/18 Potassium Chloride 10 meq PO DAILY 08/13/18 Atorvastatin Calcium [Lipitor] 80 mg PO BEDTIME #30 tab 12/23/18 Clopidogrel Bisulfate [Plavix*] 75 mg PO DAILY #30 tablet 12/23/18 Nitroglycerin [Nitrostat*] 0.4 mg SL UD PRN tab 12/23/18 New Medications: Atorvastatin Calcium [Lipitor] 80 mg PO BEDTIME #30 tab Clopidogrel Bisulfate [Plavix*] 75 mg PO DAILY #30 tablet Patient Discharge Instructions: Please please follow up with the primary care physician in 1 week. Please follow up with cardiology in 2 weeks. Please return to the emergency room for worsening symptoms. Diet: AHA Activity: Ad russell Followup: Sher Lyman MD [ACTIVE - CAN ADMIT] - Justin Jasmine DO, DO [Primary Care Provider] - Time spent managing pt's care (in minutes): 55
== END 2018-12-23 15:00 | disposition home or self-care (01) | DRG 247 ==
LOC: ER 09:56 → ERHOLD 12:39 → 4TH 13:22 → OBSVTOIN 12-19 15:00
PROVIDERS: ADMIT Family Medicine; ATTEND Family Medicine
PROC: 027035Z Dilation of Coronary Artery, One Artery with Two Drug-eluting Intraluminal Devices, Percutaneous Approach (ICD-10-PCS; principal; 2018-12-22)
PROC: 4A023N7 Measurement of Cardiac Sampling and Pressure, Left Heart, Percutaneous Approach (ICD-10-PCS; 2018-12-22)
PROC: B211YZZ Fluoroscopy of Multiple Coronary Arteries using Other Contrast (ICD-10-PCS; 2018-12-22)
PROC: B218YZZ Fluoroscopy of Left Internal Mammary Bypass Graft using Other Contrast (ICD-10-PCS; 2018-12-22)
PROC: B212YZZ Fluoroscopy of Single Coronary Artery Bypass Graft using Other Contrast (ICD-10-PCS; 2018-12-22)
DX: I21.4 Non-ST elevation (NSTEMI) myocardial infarction (principal); I50.32 Chronic diastolic (congestive) heart failure; I25.110 Atherosclerotic heart disease of native coronary artery with unstable angina pectoris; Z95.1 Presence of aortocoronary bypass graft; E78.5 Hyperlipidemia, unspecified; Z91.010 Allergy to peanuts; Z95.5 Presence of coronary angioplasty implant and graft; I11.0 Hypertensive heart disease with heart failure; E11.9 Type 2 diabetes mellitus without complications; Z79.84 Long term (current) use of oral hypoglycemic drugs; H40.9 Unspecified glaucoma; Z87.891 Personal history of nicotine dependence; R00.1 Bradycardia, unspecified
CPT/HCPCS: 36415; 71045; 78452; 80048; 80053; 80061; 80076; 81003; 82962; 83735; 83880; 84484; 85025; 85347; 85610; 93005; 93017; 93454; 94760; 99285; A9500; C1725; C1760; C1893; C9601; G0378; J0583; J1650; J2250; J2785; J3010; J7030

== ENCOUNTER 2020-07-15 12:10 | Emergency (ER) | payer OTHER, BC ==
--- OUTSIDE RECORDS SUMMARY | 2020-07-15 12:12 | XMS REPORT | Clinical Summary ---
:1950 Author Organization [facility] [employer] Address [address] [place] [address] Care Team Providers Name Role Phone Asked, Pcp Primary Care Provider Unavailable Allergies Active [...] Health Maintenance Due Date Last Done Comments COLONOSCOPY SCREENING 2001 SHINGLES VACCINES (#1) 2001 65+ PNEUMOCOCCAL VACCINE (1 of 2 - PCV13) 01/06/2016 INFLUENZA VACCINE 06/28/2020 Results Not on fileafter 07/15/2019 Insurance Payer Benefit Plan / Subscriber ID Effective Dates Phone Addre ss Type Group BCBS BCBS PAR/TRAD xxxxxxxxxxxx 2015-Present Indemnity PLAN MEDICARE MEDICARE PART A xxxxxxxxxx 2015-Present BILL HERNANDES Medicare AND B Advance Directives For more information, please contact: [phone] Type Date Recorded Patient [employer] Executive Director Explanati on Advance Directives, Living Will 01/31/2017 10:45 AM and Medical Power of Environmental Web Crawler
--- NOTE | 2020-07-15 12:57 | RAD REPORT ---
EXAM DESCRIPTION: RAD - Wrist Left 3 View - 07/15/2020 12:45 pm CLINICAL HISTORY: PAIN Pain COMPARISON: No comparisons FINDINGS: Soft tissue swelling is seen about the wrist. Mild radiocarpal arthritic changes. No acu te fracture or dislocation evident.
--- NOTE | 2020-07-15 13:03 | EDPHYS ---
Physician Documentation [facility] Name: Meredith Capone Jr Age: 70 yrs Sex: Male : 1950 Arrival Date: 07/15/2020 Time: 12:13 Bed 24 Private MD: Justin Jasmine H ED Physician Mynor Zacarias HPI: 07/15 15:55 This 70 yrs old Male presents to ER via Ambulatory with complaints of Wrist kb Injury. 15:55 The patient or guardian reports a contusion, injury, pain. The complaints affect the kb left wrist diffusely. Context: The problem was sustained at home, resulted from a direct blow, by a solid object. Onset: The symptoms/episode began/occurred just prior to arrival. Modifying factors: The symptoms are alleviated by nothing, the symptoms are aggravated by nothing. Associated signs and symptoms: The patient has no apparent associated signs or symptoms. The patient has not experienced similar symptoms in the past. The patient has not recently seen a physician. Pt reports he accidentally hit his wrist with a hammer. hematoma to left wrist. Historical: - Allergies: 12:15 Peanut; sv - PMHx: 12:15 Diabetes - NIDDM; Hyperlipidemia; Hypertension; sv - PSHx: 12:15 CABG; Carpal Tunnel Repair; neck sx; sv - Immunization history:: Adult Immunizations. - Social history:: Smoking status: . ROS: 15:57 Constitutional: Negative for fever, chills, and weight loss, Cardiovascular: Negative kb for chest pain, palpitations, and edema, Respiratory: Negative for shortness of breath, cough, wheezing, and pleuritic chest pain, Abdomen/GI: Negative for abdominal pain, nausea, vomiting, diarrhea, and constipation, Back: Negative for injury and pain, Neuro: Negative for headache, weakness, numbness, tingling, and seizure. 15:57 MS/extremity: Positive for injury or acute deformity, pain, swelling, tenderness, of the left wrist. Exam: 15:56 Constitutional: This is a well developed, well nourished patient who is awake, alert, kb and in no acute distress. Head/Face: Normocephalic, atraumatic. Chest/axilla: Normal chest wall appearance and motion. Nontender with no deformity. No lesions are appreciated. Cardiovascular: Regular rate and rhythm with a normal S1 and S2. No gallops, murmurs, or rubs. Normal PMI, no JVD. No pulse deficits. Respiratory: Lungs have equal breath sounds bilaterally, clear to auscultation and percussion. No rales, rhonchi or wheezes noted. No increased work of breathing, no retractions or nasal flaring. Abdomen/GI: Soft, non-tender, with normal bowel sounds. No distension or tympany. No guarding or rebound. No evidence of tenderness throughout. Neuro: Awake and alert, GCS 15, oriented to person, place, time, and situation. Cranial nerves II-XII grossly intact. Motor strength 5/5 in all extremities. Sensory grossly intact. Cerebellar exam normal. Normal gait. 15:56 Musculoskeletal/extremity: Extremities: grossly normal except: noted in the left wrist: contusion, pain, swelling, ROM: intact in all extremities, Circulation is intact in all extremities. Sensation intact. Vital Signs: 12:15 BP 140 / 76; Pulse 76; Resp 16; Temp 98.5(TE); Pulse Ox 99% on R/A; Weight 89.36 kg; sv Height 6 ft. 0 in. (182.88 cm); 13:17 BP 138 / 81; Pulse 75; Resp 17 S; Pulse Ox 99% on R/A; jd3 12:15 Body Mass Index 26.72 (89.36 kg, 182.88 cm) sv MDM: 12:21 Patient medically screened. kb 13:02 Data reviewed: vital signs, nurses notes. Data interpreted: Pulse oximetry: on room air kb is 99 %. Interpretation: normal. Counseling: I had a detailed discussion with the patient and/or guardian regarding: the historical points, exam findings, and any diagnostic results supporting the discharge/admit diagnosis, radiology results, the need for outpatient follow up, a family practitioner, to return to the emergency department if symptoms worsen or persist or if there are any questions or concerns that arise at home. 07/15 12:24 Order name: Wrist Left (3 View) XRAY; Complete Time: 13:02 kb Administered Medications: No medications were administered Disposition: 16:41 Co-signature as Attending Physician, Mynor Zacarias MD I agree with the assessment and kdr plan of care. Disposition: 07/15/20 13:02 Discharged to Home. Impression: Contusion of left wrist. - Condition is Stable. - Discharge Instructions: Contusion, [id number], Wrist Pain, [id number]. - Medication Reconciliation Form, Thank You Letter, Antibiotic Education, Prescription Opioid Use form. - Follow up: Emergency Department; When: As needed; Reason: Worsening of condition. Follow up: Private Physician; When: 2 - 3 days; Reason: Recheck today's complaints, Continuance of care, Re-evaluation by your physician. Signatures: Dispatcher [employer] EDMS Devika Carbajal, CPO-C CPO-CkMonae Glass, RN RN sv yMnor Zacarias MD MD kdr Willam Pinto RN RN jd3 Corrections: (The following items were deleted from the chart) 13:17 13:02 07/15/2020 13:02 Discharged to Home. Impression: Contusion of left wrist. jd3 Condition is Stable. Forms are Medication Reconciliation Form, Thank You Letter, Antibiotic Education, Prescription Opioid Use. Follow up: Emergency Department; When: As needed; Reason: Worsening of condition. Follow up: Private Physician; When: 2 - 3 days; Reason: Recheck today's complaints, Continuance of care, Re-evaluation by your physician. kb
--- NOTE | 2020-07-15 13:03 | ER ---
Nurse's Notes [facility] Name: Meredith Capone Jr Age: 70 yrs Sex: Male : 1950 Arrival Date: 07/15/2020 Time: 12:13 Bed 24 [facility] MD: Justin Jasmine H Diagnosis: Contusion of left wrist Presentation: 07/15 12:14 Chief complaint: Patient states: hit his left wrist with a hammer. Coronavirus screen: sv Client denies travel out of the [place] in the last 14 days. At this time, the client does not indicate any symptoms associated with coronavirus-19. Ebola Screen: No symptoms or risks identified at this time. Risk Assessment: Do you want to hurt yourself or someone else? Patient reports no desire to harm self or others. Onset of symptoms was July 15, 2020. 12:14 Method Of Arrival: Ambulatory sv 12:14 Acuity: CARMINA 3 sv 12:15 Initial Sepsis Screen: Does the patient meet any 2 criteria? No. Patient's initial sv sepsis screen is negative. Does the patient have a suspected source of infection? No. Patient's initial sepsis screen is negative. Triage Assessment: 13:16 Injury Description: reported hitting wrist with hammer by accident. jd3 Historical: - Allergies: 12:15 Peanut; sv - PMHx: 12:15 Diabetes - NIDDM; Hyperlipidemia; Hypertension; sv - PSHx: 12:15 CABG; Carpal Tunnel Repair; neck sx; sv - Immunization history:: Adult Immunizations. - Social history:: Smoking status: . Screenin:16 Abuse screen: Denies threats or abuse. Nutritional screening: No deficits noted. jd3 Tuberculosis screening: No symptoms or risk factors identified. Fall Risk Ambulatory Aid- None/Bed Rest/Nurse Assist (0 pts). Gait- Normal/Bed Rest/Wheelchair (0 pts) Mental Status- Oriented to own ability (0 pts). Total Mcginnis Fall Scale indicates No Risk (0-24 pts). Assessment: 12:55 General: Appears in no apparent distress. uncomfortable, Behavior is calm, cooperative, jd3 appropriate for age. Pain: Complains of pain in left wrist Quality of pain is described as aching. Neuro: Level of Consciousness is awake, alert, obeys commands, Oriented to person, place, time, situation. Cardiovascular: Denies chest pain, Capillary refill < 3 seconds Patient's skin is warm and dry. Respiratory: Airway is patent Respiratory effort is even, unlabored, Respiratory pattern is regular, symmetrical, Denies cough, shortness of breath. GI: No signs and/or symptoms were reported involving the gastrointestinal system. : No signs and/or symptoms were reported regarding the genitourinary system. EENT: No signs and/or symptoms were reported regarding the EENT system. Derm: Skin is intact, Skin is dry, Skin is normal, Skin temperature is warm. Musculoskeletal: Circulation, motion, and sensation intact. Range of motion: intact in all extremities, no deformity noted. Vital Signs: 12:15 BP 140 / 76; Pulse 76; Resp 16; Temp 98.5(TE); Pulse Ox 99% on R/A; Weight 89.36 kg; sv Height 6 ft. 0 in. (182.88 cm); 13:17 BP 138 / 81; Pulse 75; Resp 17 S; Pulse Ox 99% on R/A; jd3 12:15 Body Mass Index 26.72 (89.36 kg, 182.88 cm) sv ED Course: 12:13 Patient arrived in ED. mr 12:13 Justin Jasmine DO is Private Physician. mr 12:14 Devika Carbajal FNP-C is [facility]. kb 12:14 Mynor Zacarias MD is Attending Physician. kb 12:14 Triage completed. sv 12:14 Arm band placed on. sv 12:45 Wrist Left (3 View) XRAY In Process Unspecified. EDMS 12:55 Willam Pinto, AMADA is Primary Nurse. jd3 13:15 No provider procedures requiring assistance completed. Patient did not have IV access jd3 during this emergency room visit. Giancarlo wrap to left wrist. 13:17 Patient has correct armband on for positive identification. Bed in low position. Call jd3 light in reach. Side rails up X 1. Pulse ox on. NIBP on. Administered Medications: No medications were administered Outcome: 13:02 Discharge ordered by . kb 13:16 Discharged to home ambulatory, with family. jd3 13:16 Condition: stable 13:16 Discharge instructions given to patient, Instructed on discharge instructions, follow up and referral plans. Demonstrated understanding of instructions, follow-up care. 13:17 Patient left the ED. jd3 Signatures: Dispatcher [employer] Devika Ragland, AGUILA REYES-Monae Berry RN RN Regla Dumont Jonathon, RN RN jd3 Corrections: (The following items were deleted from the chart) 12:17 12:15 Pulse 76bpm; Resp 16bpm; Pulse Ox 99%; Temp 98.5F; sv sv 12:17 12:15 Pulse 76bpm; Resp 16bpm; Pulse Ox 99%; Temp 98.5F; 89.36 kg; Height 6 ft. 0 in.; sv BMI: 26.7; sv
[2020-07-15 18:23] VITALS: TEMP 98.5; O2SAT 99
[2020-07-15 18:24] VITALS: BP 138/81
== END 2020-07-15 13:17 | disposition home or self-care (01) ==
LOC: ER 12:10
DX: S60.212A Contusion of left wrist, initial encounter (principal); W22.8XXA Striking against or struck by other objects, initial encounter; Y93.9 Activity, unspecified; Y92.009 Unspecified place in unspecified non-institutional (private) residence as the place of occurrence of the external cause; I10 Essential (primary) hypertension; Z91.010 Allergy to peanuts; Z95.1 Presence of aortocoronary bypass graft
CPT/HCPCS: 99283

== ENCOUNTER 2022-05-06 06:53 | Emergency (ER) | payer OTHER, BC ==
--- NOTE | 2022-05-06 07:27 | ER ---
Nurse's Notes [facility] Name: Meredith Capone Jr Age: 72 yrs Sex: Male : 1950 Arrival Date: 05/06/2022 Time: 06:56 Bed 8 Private MD: Diagnosis: Cellulitis of left upper limb-Left hand Presentation: 05/06 07:16 Chief complaint: Patient states: "dog was tangled with a leash, and I tried to untangle em6 the dog and got bitten. Happened on . Dog vaccines are up to date.". Coronavirus screen: Vaccine status: Patient reports receiving the 2nd dose of the covid vaccine. At this time, the client does not indicate any symptoms associated with coronavirus-19. Ebola Screen: No symptoms or risks identified at this time. Initial Sepsis Screen: Does the patient meet any 2 criteria? No. Patient's initial sepsis screen is negative. Does the patient have a suspected source of infection? Yes: Skin breakdown/wound. Risk Assessment: Do you want to hurt yourself or someone else? Patient reports no desire to harm self or others. Onset of symptoms was May 03, 2022. 07:16 Method Of Arrival: Ambulatory em6 07:16 Acuity: CARMINA 4 em6 Triage Assessment: 07:48 Bite description: bite sustained to left hand by animal information: vaccination(s) is em6 current. Bite description: bite by a dog, animal information:. General: Appears in no apparent distress. comfortable, Behavior is calm, cooperative. Historical: - Allergies: 07:23 Peanut; em6 - Home Meds: 07:23 metformin 1,000 mg Oral tab 1 tab 2 times per day [Active]; atorvastatin 80 mg oral tab em6 1 tab once daily [Active]; metoprolol tartrate 50 mg Oral tab 1 tab 2 times per day [Active]; losartan-hydrochlorothiazide 100-25 mg oral tab [Active]; - PMHx: 07:23 Diabetes - NIDDM; Hyperlipidemia; Hypertension; cancer; myasthenia gravis; em6 - PSHx: 07:23 cardiac stents; em6 - Immunization history:: Adult Immunizations up to date. - Social history:: Smoking status: Patient denies any tobacco usage or history of. - Family history:: not pertinent. - Hospitalizations: : No recent hospitalization is reported. Screenin:47 Abuse screen: Denies threats or abuse. Nutritional screening: No deficits noted. em6 Tuberculosis screening: No symptoms or risk factors identified. Fall Risk None identified. Assessment: 07:31 General: Appears in no apparent distress. comfortable, Behavior is calm, cooperative. em6 Pain: Denies pain. Neuro: York Agitation-Sedation Scale (RASS): 0 - Alert and Calm Level of Consciousness is awake, alert, obeys commands, Oriented to person, place, time, situation. Cardiovascular: Capillary refill < 3 seconds Patient's skin is warm and dry. Respiratory: Airway is patent Respiratory effort is even, unlabored, Respiratory pattern is regular, symmetrical. GI: No signs and/or symptoms were reported involving the gastrointestinal system. : No signs and/or symptoms were reported regarding the genitourinary system. EENT: No signs and/or symptoms were reported regarding the EENT system. Derm: Skin is intact, Skin is normal, Wound noted left hand Wound is half centimeter puncture wound in advance healing with small amount of redness noted around puncture. Musculoskeletal: No signs and/or symptoms reported regarding the musculoskeletal system. Injury Description: Bite sustained to left hand caused by a dog, is superficial. Vital Signs: 07:16 BP 144 / 71; Pulse 66; Resp 16; Temp 97.6; Pulse Ox 100% on R/A; Weight 86.64 kg; em6 Height 6 ft. (182.88 cm); Pain 0/10; 07:16 Body Mass Index 25.90 (86.64 kg, 182.88 cm) em6 ED Course: 06:56 Patient arrived in ED. bp1 07:00 Tarik Jacobs MD is Attending Physician. rn 07:09 Willam Pinto, AMADA is Primary Nurse. jd3 07:23 Triage completed. em6 07:30 Arm band placed on. em6 07:48 No provider procedures requiring assistance completed. Patient did not have IV access em6 during this emergency room visit. 07:51 Patient has correct armband on for positive identification. Bed in low position. Call em6 light in reach. Side rails up X 1. Adult w/ patient. Pulse ox on. NIBP on. Administered Medications: No medications were administered Medication: 07:52 VIS not applicable for this client. em6 Outcome: 07:26 Discharge ordered by . amada 07:49 Discharged to home em6 07:49 Condition: stable 07:49 Discharge instructions given to patient, Instructed on discharge instructions, follow up and referral plans. medication usage, Demonstrated understanding of instructions, follow-up care, medications, Prescriptions given X 2. 07:52 Patient left the ED. em6 Signatures: Tarik Jacobs MD MD rn Davies, Jonathon, RN RN Ibis Alvarado Erika, RN RN em6
--- NOTE | 2022-05-06 07:27 | EDPHYS ---
Physician Documentation [facility] Name: Meredith Capone Jr Age: 72 yrs Sex: Male : 1950 Arrival Date: 05/06/2022 Time: 06:56 Bed 8 Private MD: ED Physician Tarik Jacobs HPI: 05/06 07:14 This 72 yrs old Male presents to ER via Unassigned with complaints of Dog Bite, - rn Infected. 07:14 The patient was bitten on the left hand, by a dog, in an unprovoked manner, at home. rn Onset: The symptoms/episode began/occurred 3 day(s) ago. Animal information: Animal's vaccinations are up to date. Secondary to the bite the patient reports pain, warmth. Severity of symptoms: At their worst the symptoms were mild, in the emergency department the symptoms are unchanged. The patient has not experienced similar symptoms in the past. The patient has not recently seen a physician. Pt reports dog bite, 3 days ago, his own dog, got left hand, was doing ok until this AM, woke up with redness and warmth. No fever. . Historical: - Allergies: 07:23 Peanut; em6 - Home Meds: 07:23 metformin 1,000 mg Oral tab 1 tab 2 times per day [Active]; atorvastatin 80 mg oral tab em6 1 tab once daily [Active]; metoprolol tartrate 50 mg Oral tab 1 tab 2 times per day [Active]; losartan-hydrochlorothiazide 100-25 mg oral tab [Active]; - PMHx: 07:23 Diabetes - NIDDM; Hyperlipidemia; Hypertension; cancer; myasthenia gravis; em6 - PSHx: 07:23 cardiac stents; em6 - Immunization history:: Adult Immunizations up to date. - Social history:: Smoking status: Patient denies any tobacco usage or history of. - Family history:: not pertinent. - Hospitalizations: : No recent hospitalization is reported. ROS: 07:14 Constitutional: Negative for fever, chills, and weight loss, MS/Extremity: + dog bite rn to left hand Skin: + redness and warmth to left hand Exam: 07:14 Constitutional: This is a well developed, well nourished patient who is awake, alert, rn and in no acute distress. Skin: Warm, dry, + erythema and tenderness without fluctuance dorsum of left hand MS/ Extremity: Pulses equal, no cyanosis. Neurovascular intact. Full, normal range of motion. No fusiform swelling, easily makes a fist, no tenderness along flexor surface of fingers. Vital Signs: 07:16 BP 144 / 71; Pulse 66; Resp 16; Temp 97.6; Pulse Ox 100% on R/A; Weight 86.64 kg; em6 Height 6 ft. (182.88 cm); Pain 0/10; 07:16 Body Mass Index 25.90 (86.64 kg, 182.88 cm) em6 MDM: 07:00 Patient medically screened. rn 07:14 Differential diagnosis: cellulitis. Data reviewed: vital signs, nurses notes, and as a rn result, I will discharge patient. Counseling: I had a detailed discussion with the patient and/or guardian regarding: the historical points, exam findings, and any diagnostic results supporting the discharge/admit diagnosis, the need for outpatient follow up, to return to the emergency department if symptoms worsen or persist or if there are any questions or concerns that arise at home. Special discussion: I discussed with the patient/guardian in detail that at this point there is no indication for admission to the hospital. It is understood, however, that if the symptoms persist or worsen the patient needs to return immediately for re-evaluation. Based on the history and exam findings, there is no indication for further emergent testing or inpatient evaluation. I discussed with the patient/guardian the need to see the primary care provider for further evaluation of the symptoms. Administered Medications: No medications were administered Disposition Summary: 05/06/22 07:26 Discharge Ordered Location: Home rn Problem: new rn Symptoms: have improved rn Condition: Stable rn Diagnosis - Cellulitis of left upper limb - Left hand rn Followup: rn - With: Private Physician - When: 2 - 3 days - Reason: Recheck today's complaints, Re-evaluation by your physician Discharge Instructions: - Discharge Summary Sheet rn - Cellulitis, Adult rn - Animal Bite, Adult rn Forms: - Medication Reconciliation Form rn - Thank You Letter rn - Antibiotic analysis intern - Prescription Opioid Use rn Prescriptions: - Cephalexin 500 mg Oral Capsule - take 1 capsule by ORAL route every 12 hours for 10 days; 20 capsule; Refills: rn 0, Product Selection Permitted - Bactrim DS 800-160 mg Oral Tablet - take 1 tablet by ORAL route every 12 hours for 10 days; 20 tablet; Refills: 0, rn Product Selection Permitted Signatures: Tarik Jacobs MD MD rn Linsey Eddy RN RN em6
[2022-05-06 07:58] VITALS: BP 144/71; TEMP 97.6; O2SAT 100
== END 2022-05-06 07:52 | disposition home or self-care (01) ==
LOC: ER 06:53
DX: L03.114 Cellulitis of left upper limb (principal); W54.0XXA Bitten by dog, initial encounter; E11.9 Type 2 diabetes mellitus without complications; I10 Essential (primary) hypertension; Z91.010 Allergy to peanuts; Z95.818 Presence of other cardiac implants and grafts
CPT/HCPCS: 99283

== ENCOUNTER 2024-04-12 01:42 | Observation (INO) | payer OTHER, BC ==
[2024-04-12] MEDS ORDERED: NA CHLORIDE 0.9% 1,000 ML ONE (02:03)
[2024-04-12] MEDS ORDERED: ASPIRIN 81 MG CHEWABLE TABLET ONE (02:03)
[2024-04-12] MEDS ORDERED: FAMOTIDINE 20 MG/2 ML VIAL IV ONE (02:13)
[2024-04-12 02:22] LABS: PT Prothrombin Time 9.9 SECONDS (9.5-12.5); Protime INR 0.9
[2024-04-12 02:27] LABS: Absolute Eosinophils 0.1 K/uL (0-0.5); Absolute Lymphocytes (CBC) 0.9 K/uL (0.7-4.9); Absolute Monocytes 0.4 K/uL (0.1-1.3); Absolute Neutrophil 2.8 K/uL (1.8-8.0); Basophils % 0.8 % (0-1.3); Eosinophils % 2.7 % (0-4.4); Hemoglobin 14.8 g/dL (13.6-17.9); Lymphocytes % 20.6 % (15.3-44.8); MCH 32.6 pg (27.0-35.0); MCHC 34.6 g/dL (32.0-36.0); MCV 94.2 fL (80-100); MPV 7.1 fL (7.6-11.3); Monocytes % 9.7 % (3.3-12.3); Neutrophils % 66.2 % (41.7-73.7); Nucleated Red Blood Cells % 0.2 % (0-0); Platelets 154 thou/uL (152-406); RBC Red Blood Cell Count 4.56 M/uL (4.33-5.43); Red Cell Distribution Width 14.9 % (12.1-15.2)
[2024-04-12 02:35] LABS: Albumin 3.6 g/dL (3.4-5.0); Albumin/Globulin Ratio 1.1 (1.1-1.8); Anion Gap 7.4 mEq/L (5.0-15.0); Bilirubin Direct 0.3 mg/dL (0-0.2); Bilirubin Indirect, Calculated 0.6 mg/dL (0.2-0.8); Bilirubin Total 0.9 mg/dL (0.2-1.0); Globulin 3.4 g/dL (2.3-3.5); Magnesium 2.4 mg/dL (1.6-2.4); Potassium 3.4 mEq/L (3.5-5.1); Troponin High Sensitivity 4.9 pg/mL (<58.9)
[2024-04-12] MEDS ORDERED: POTASSIUM 25 MEQ EFFERV TAB ONE (02:46)
[2024-04-12 03:01] LABS: Specific Gravity 1.014 (1.005-1.030); Sqamous Epithelial None Seen /HPF (None Seen); Urine Bacteria None Seen /HPF (<20); Urine Bilirubin NEGATIVE (Negative); Urine Blood Negative (Negative); Urine Clarity Clear (Clear); Urine Color Light-Yellow (Yellow); Urine Culture Reflex Order NOT NEEDED; Urine Glucose 4+ (Over) (Negative); Urine Ketones NEGATIVE (Negative); Urine Microscopic Reflex YN ORDER UMIC; Urine Nitrite NEGATIVE (Negative); Urine Protein NEGATIVE (Negative); Urine RBC <5 /HPF (None Seen); Urine Urobilinogen Normal (Normal); Urine WBC <5 /HPF (<5)
--- NOTE | 2024-04-12 03:36 | ER ---
Nurse's Notes [facility] Name: Meredith Capone Jr Age: 74 yrs Sex: Male : 1950 Arrival Date: 04/12/2024 Time: 01:42 Bed 6 Private MD: Diagnosis: Chest pain, unspecified;Type 2 diabetes mellitus with hyperglycemia;Essential (primary) hypertension;Myasthenia gravis Presentation: 04/12 01:54 Chief complaint: Patient states: chest pain that woke him up around 0110. Coronavirus tm6 screen: Vaccine status: Patient reports receiving the 2nd dose of the covid vaccine. Ebola Screen: Patient negative for fever greater than or equal to 101.5 degrees Fahrenheit, and additional compatible Ebola Virus Disease symptoms Patient denies exposure to infectious person. Patient denies travel to an Ebola-affected area in the 21 days before illness onset. No symptoms or risks identified at this time. Initial Sepsis Screen: Does the patient meet any 2 criteria? No. Patient's initial sepsis screen is negative. Does the patient have a suspected source of infection? No. Patient's initial sepsis screen is negative. Risk Assessment: Do you want to hurt yourself or someone else? Patient reports no desire to harm self or others. Onset of symptoms was April 12, 2024. 01:54 Method Of Arrival: Ambulatory tm6 01:54 Acuity: CARMINA 3 tm6 Triage Assessment: 01:55 General: Appears in no apparent distress. Behavior is calm, cooperative. Pain: Denies tm6 pain. Complains of pain in mid-sternal area Pain does not radiate. Pain currently is 0 out of 10 on a pain scale. at worst was 8 out of 10 on a pain scale. Pain began suddenly, 30 min ago. EENT: No signs and/or symptoms were reported regarding the EENT system. Neuro: Level of Consciousness is awake, alert, obeys commands, Oriented to person, place, time, situation. Cardiovascular: Reports chest pain, since 0110, but no longer having pain Patient's skin is warm and dry. Rhythm is sinus rhythm Chest pain is denied. Respiratory: Airway is patent Respiratory effort is even, unlabored, Respiratory pattern is regular, symmetrical. GI: No signs and/or symptoms were reported involving the gastrointestinal system. Abdomen is flat, non-distended. : No signs and/or symptoms were reported regarding the genitourinary system. Derm: No signs and/or symptoms reported regarding the dermatologic system. Musculoskeletal: No signs and/or symptoms reported regarding the musculoskeletal system. Historical: - Allergies: 01:55 Peanut; tm6 - PMHx: 01:55 Cancer; Diabetes - NIDDM; Hyperlipidemia; Hypertension; Myasthenia Gravis; tm6 - PSHx: 01:55 cardiac stents; CABG (cardiac stents); tm6 - Immunization history:: Client reports receiving the 2nd dose of the Covid vaccine. - Infectious Disease History:: Denies. - Social history:: Smoking status: Patient denies any tobacco usage or history of. Patient/guardian denies using alcohol. - Family history:: not pertinent. Screenin:58 [facility] ED Fall Risk Assessment (Adult) History of falling in the last 3 months, tm6 including since admission No falls in past 3 months (0 pts) Confusion or Disorientation No (0 pts) Intoxicated or Sedated No (0 pts) Impaired Gait No (0 pts) Mobility Assist Device Used No (0 pt) Altered Elimination No (0 pt) Score/Fall Risk Level 0 - 2 = Low Risk Oriented to surroundings, Maintained a safe environment, Educated pt \T\ family on fall prevention, incl call for assistance when getting out of bed. Abuse screen: Denies threats or abuse. Denies injuries from another. Nutritional screening: No deficits noted. Tuberculosis screening: No symptoms or risk factors identified. Assessment: 01:58 Reassessment: see triage assessment. tm6 03:26 Reassessment: Patient and/or family updated on plan of care and expected duration. Pain tm6 level reassessed. Patient is alert, oriented x 3, equal unlabored respirations, skin warm/dry/pink. patient complaining of neck pain. Vital Signs: 01:54 BP 138 / 79; Pulse 65; Resp 12; Temp 97.6(O); Pulse Ox 100% on R/A; Weight 79.38 kg; tm6 Height 6 ft. 0 in. ; Pain 0/10; 02:22 BP 129 / 74; Pulse 65; Resp 15; Pulse Ox 100% on R/A; MAP 89 mmHg; Pain 0/10; tm6 03:26 BP 146 / 72; Pulse 64; Resp 18; Pulse Ox 97% on R/A; Pain 4/10; tm6 01:54 Body Mass Index 23.73 (79.38 kg, 182.88 cm) tm6 01:54 Pain Scale: Adult tm6 02:22 Pain Scale: Adult tm6 03:26 Pain Scale: Adult tm6 ED Course: 01:43 Patient arrived in ED. lg3 01:47 Joe Ortiz MD is Attending Physician. femi 01:54 EKG done, by ED staff, reviewed by Joe Ortiz MD. tm6 01:55 Triage completed. tm6 01:55 Arm band placed on right wrist. tm6 01:58 Patient has correct armband on for positive identification. Placed in gown. Bed in low tm6 position. Call light in reach. Side rails up X 1. Provided Education on: use of call drew. Client placed on continuous cardiac and pulse oximetry monitoring. NIBP monitoring applied. potline monitor on. Pulse ox on. NIBP on. Door closed. Noise minimized. 02:08 Inserted saline lock: 22 gauge in right antecubital area, using aseptic technique. tm6 02:09 Basic Metabolic Panel Sent. tm6 02:09 CBC with Diff Sent. tm6 02:09 LFT's Sent. tm6 02:09 Magnesium Sent. tm6 02:09 NT PRO-BNP Sent. tm6 02:09 PT-INR Sent. tm6 02:09 Troponin HS Sent. tm6 02:27 XRAY Chest (1 view) In Process Unspecified. EDMS 03:08 CT Aorta for Dissection In Process Unspecified. EDMS 03:33 Bossman Turcios MD is Hospitalizing Provider. femi 03:50 No provider procedures requiring assistance completed. Patient admitted, IV remains in tm6 place. Administered Medications: 02:08 Drug: NS 0.9% IV 1000 ml IV at 125 ml/hr continuous Route: IV; Rate: 125 ml/hr; Site: tm6 right antecubital; 02:08 Drug: Aspirin PO Chewable Tablet 162 mg PO once Route: PO; tm6 02:17 Drug: Famotidine IVP 20 mg IVP once; dilute with 10 mL 0.9% NaCl; give over 2 minutes tm6 Route: IVP; Site: right antecubital; 02:53 Drug: Potassium PO Effervescent Tablet 25 mEq PO once; dissolve in 4 ounces of water or tm6 juice Route: PO; 04:20 Drug: Pantoprazole IVP 40 mg IVP once Route: IVP; Site: right antecubital; bm8 04:20 Drug: Rocephin IV 1 grams IV at per protocol once; Given slow IV push per pharmacy bm8 instructions Route: IV; Rate: per protocol; Site: right antecubital; 04:39 Follow up: Response: No adverse reaction; IV Status: Completed infusion; IV Intake: [id number] 06:25 Not Given (Duplicate Order; will receive in [facility]): [id number] mg Sub-Q once; if tm6 CT DISSECTION NEGATIVE Medication: 01:58 VIS not applicable for this client. tm6 Intake: 04:39 IV: 10ml; Total: 10ml. 8 Outcome: 03:35 Decision to Hospitalize by Provider. femi 03:50 Admitted to ER Hold. Please see [facility] for further documentation. tm6 03:50 Condition: stable 03:50 Instructed on the need for admit, 16:48 Patient left the ED. jr12 Signatures: Dispatcher [employer] EDJoe Whitney MD MD cha Able, Lacie, RN RN lg3 Ayesha Connelly jr12 Nino Whitt RN RN tm6 Jarrod Fernando RN RN bm8
--- NOTE | 2024-04-12 03:36 | EDPHYS ---
Physician Documentation [facility] Name: Meredith Capone Jr Age: 74 yrs Sex: Male : 1950 Arrival Date: 04/12/2024 Time: 01:42 Bed 6 Private MD: ED Physician Joe Ortiz HPI: 04/12 02:11 This 74 yrs old Male presents to ER via Ambulatory with complaints of Chest femi Pain. 02:11 The patient or guardian reports chest pain that is located primarily in the substernal femi area. Onset: just prior to arrival, this morning. The pain does not radiate. Associated signs and symptoms: Pertinent positives: palpitations, shortness of breath. The chest pain is described as causing indigestion, a pressure. Modifying factors: The symptoms are alleviated by nothing. the symptoms are aggravated by nothing. Severity of pain: At its worst the pain was mild moderate in the emergency department the pain is unchanged. The patient has not experienced similar symptoms in the past. Historical: - Allergies: 01:55 Peanut; tm6 - PMHx: 01:55 Cancer; Diabetes - NIDDM; Hyperlipidemia; Hypertension; Myasthenia Gravis; tm6 - PSHx: 01:55 cardiac stents; CABG (cardiac stents); tm6 - Immunization history:: Client reports receiving the 2nd dose of the Covid vaccine. - Infectious Disease History:: Denies. - Social history:: Smoking status: Patient denies any tobacco usage or history of. Patient/guardian denies using alcohol. - Family history:: not pertinent. ROS: 02:11 Constitutional: Negative for fever, chills, and weight loss, Eyes: Negative for injury, femi pain, redness, and discharge, ENT: Negative for injury, pain, and discharge, Neck: Negative for injury, pain, and swelling, Respiratory: Negative for shortness of breath, cough, wheezing, and pleuritic chest pain, Abdomen/GI: Negative for abdominal pain, nausea, vomiting, diarrhea, and constipation, Back: Negative for injury and pain, : Negative for injury, bleeding, discharge, and swelling, MS/Extremity: Negative for injury and deformity, Skin: Negative for injury, rash, and discoloration, Neuro: Negative for headache, weakness, numbness, tingling, and seizure, Psych: Negative for depression, anxiety, suicide ideation, homicidal ideation, and hallucinations, Allergy/Immunology: Negative for hives, rash, and allergies, Endocrine: Negative for neck swelling, polydipsia, polyuria, polyphagia, and marked weight changes, Hematologic/Lymphatic: Negative for swollen nodes, abnormal bleeding, and unusual bruising, 02:11 Cardiovascular: Positive for chest pain, Exam: 02:11 Constitutional: This is a well developed, well nourished patient who is awake, alert, femi and in no acute distress. Head/Face: Normocephalic, atraumatic. Eyes: Pupils equal round and reactive to light, extra-ocular motions intact. Lids and lashes normal. Conjunctiva and sclera are non-icteric and not injected. Cornea within normal limits. Periorbital areas with no swelling, redness, or edema. ENT: Nares patent. No nasal discharge, no septal abnormalities noted. Tympanic membranes are normal and external auditory canals are clear. Oropharynx with no redness, swelling, or masses, exudates, or evidence of obstruction, uvula midline. Mucous membranes moist. Neck: Trachea midline, no thyromegaly or masses palpated, and no cervical lymphadenopathy. Supple, full range of motion without nuchal rigidity, or vertebral point tenderness. No Meningismus. Chest/axilla: Normal chest wall appearance and motion. Nontender with no deformity. No lesions are appreciated. Cardiovascular: Regular rate and rhythm with a normal S1 and S2. No gallops, murmurs, or rubs. Normal PMI, no JVD. No pulse deficits. Respiratory: Lungs have equal breath sounds bilaterally, clear to auscultation and percussion. No rales, rhonchi or wheezes noted. No increased work of breathing, no retractions or nasal flaring. Abdomen/GI: Soft, non-tender, with normal bowel sounds. No distension or tympany. No guarding or rebound. No evidence of tenderness throughout. Back: No spinal tenderness. No costovertebral tenderness. Full range of motion. Male : Normal genitalia with no discharge or lesions. Skin: Warm, dry with normal turgor. Normal color with no rashes, no lesions, and no evidence of cellulitis. MS/ Extremity: Pulses equal, no cyanosis. Neurovascular intact. Full, normal range of motion. Neuro: Awake and alert, GCS 15, oriented to person, place, time, and situation. Cranial nerves II-XII grossly intact. Motor strength 5/5 in all extremities. Sensory grossly intact. Cerebellar exam normal. Normal gait. Psych: Awake, alert, with orientation to person, place and time. Behavior, mood, and affect are within normal limits. 02:11 ECG was reviewed by the Attending Physician. Vital Signs: 01:54 BP 138 / 79; Pulse 65; Resp 12; Temp 97.6(O); Pulse Ox 100% on R/A; Weight 79.38 kg; tm6 Height 6 ft. 0 in. ; Pain 0/10; 02:22 BP 129 / 74; Pulse 65; Resp 15; Pulse Ox 100% on R/A; MAP 89 mmHg; Pain 0/10; tm6 03:26 BP 146 / 72; Pulse 64; Resp 18; Pulse Ox 97% on R/A; Pain 4/10; tm6 01:54 Body Mass Index 23.73 (79.38 kg, 182.88 cm) tm6 01:54 Pain Scale: Adult tm6 02:22 Pain Scale: Adult tm6 03:26 Pain Scale: Adult tm6 MDM: 01:47 Patient medically screened. femi 02:14 Differential diagnosis: abnormal EKG, acute myocardial infarction, acute pericarditis, femi anxiety, Cholelithiasis costochondritis, esophagitis, gastritis, hiatal hernia, pancreatitis, pleurisy, pneumonia, pneumothorax, pulmonary embolus, stable angina, thoracic aortic disection, unstable angina. HEART Score: History: Moderately Suspicious (1), ECG: Non specific repolarization disturbance / LBTB / PM (1), Age: > or = 65 years (2), Risk Factors: > or = 3 Risk factors for atherosclerotic disease (2), [Hypercholesterolemia] [Hypertension] [DM] [+ Family HX] Troponin: < or = 1 x Normal Limit (0). The patient was given aspirin in the Emergency Department. COLT Risk Score: 1 - patient's age is greater or equal to 65 years, 1 - Three or more CAD risk factors. Data reviewed: vital signs, nurses notes, lab test result(s), EKG, radiologic studies, plain films. Consideration of Admission/Observation Patient was admitted/placed on observation. Escalation of care including admission/observation considered. I considered the following discharge prescriptions or medication management in the emergency department Medications were administered in the Emergency Department. See MAR. Independent interpretation of the following test(s) in the Emergency Department EKG: See my EKG interpretation above. Test considered but Not performed: Ultrasound NO 2 D ECHO. Historians other than the Patient: Spouse/Significant Other: WELL IN FORMED. Care significantly affected by the following chronic conditions: Diabetes, Hypertension, Cancer, HYPERLIPIDS, MG. Counseling: I had a detailed discussion with the patient and/or guardian regarding the historical points, exam findings, and any diagnostic results supporting the discharge/admit diagnosis, lab results, radiology results, the need for further work-up and treatment in the hospital. 04/12 01:48 Order name: Basic Metabolic Panel; Complete Time: 02:44 [facility] 04/12 01:48 Order name: CBC with Diff; Complete Time: 02:44 [facility] 04/12 01:48 Order name: LFT's; Complete Time: 02:44 [facility] 04/12 01:48 Order name: Magnesium; Complete Time: 02:44 [facility] 04/12 01:48 Order name: NT PRO-BNP; Complete Time: 02:44 [facility] 04/12 01:48 Order name: PT-INR; Complete Time: 02:44 [facility] 04/12 01:48 Order name: Troponin HS; Complete Time: 02:44 [facility] 04/12 01:48 Order name: Lipase; Complete Time: 02:44 [facility] 04/12 01:48 Order name: Urinalysis w/ reflexes; Complete Time: 03:30 [facility] 04/12 04:14 Order name: Urine Culture [facility] 04/12 05:17 Order name: Urinalysis w/ reflexes [facility] 04/12 05:17 Order name: CBC with Automated Diff [facility] 04/12 05:17 Order name: CBC with Automated Diff [facility] 04/12 05:17 Order name: Comprehensive Metabolic Panel [facility] 04/12 05:17 Order name: Comprehensive Metabolic Panel [facility] 04/12 05:17 Order name: Troponin High Sensitivity [facility] 04/12 05:17 Order name: Troponin High Sensitivity [facility] 04/12 05:17 Order name: Troponin High Sensitivity [facility] 04/12 05:17 Order name: Troponin High Sensitivity [facility] 04/12 11:43 Order name: Glucose, Ancillary Testing [facility] 04/12 01:48 Order name: XRAY Chest (1 view) [facility] 04/12 02:11 Order name: CT Aorta for Dissection [facility] 04/12 05:42 Order name: Echo with Doppler [facility] 04/12 05:17 Order name: CONS Physician Consult [facility] 04/12 01:48 Order name: Cardiac monitoring; Complete Time: 01:59 [facility] 04/12 01:48 Order name: EKG - Nurse/Tech; Complete Time: 01:59 [facility] 04/12 01:48 Order name: IV Saline Lock; Complete Time: 02:09 [facility] 04/12 01:48 Order name: Labs collected and sent; Complete Time: 02: [facility] 04/12 01:48 Order name: O2 Per Protocol; Complete Time: 01:59 [facility] 04/12 01:48 Order name: O2 Sat Monitoring; Complete Time: :59 [facility] EC:11 Rate is 63 beats/min. Rhythm is regular. QRS Spencer is Normal. MO interval is normal. QRS femi interval is normal. QT interval is normal. No Q waves. T waves are Normal. No ST changes noted. Clinical impression: NSR w/ Non-specific ST/T Changes and No evidence of ischemia. Interpreted by me. Reviewed by me. Administered Medications: 02:08 Drug: NS 0.9% IV 1000 ml IV at 125 ml/hr continuous Route: IV; Rate: 125 ml/hr; Site: tm6 right antecubital; 02:08 Drug: Aspirin PO Chewable Tablet 162 mg PO once Route: PO; tm6 02:17 Drug: Famotidine IVP 20 mg IVP once; dilute with 10 mL 0.9% NaCl; give over 2 minutes tm6 Route: IVP; Site: right antecubital; 02:53 Drug: Potassium PO Effervescent Tablet 25 mEq PO once; dissolve in 4 ounces of water or tm6 juice Route: PO; 04:20 Drug: Pantoprazole IVP 40 mg IVP once Route: IVP; Site: right antecubital; bm8 04:20 Drug: Rocephin IV 1 grams IV at per protocol once; Given slow IV push per pharmacy bm8 instructions Route: IV; Rate: per protocol; Site: right antecubital; 04:39 Follow up: Response: No adverse reaction; IV Status: Completed infusion; IV Intake: [id number] 06:25 Not Given (Duplicate Order; will receive in [facility]): [id number] mg Sub-Q once; if tm6 CT DISSECTION NEGATIVE Disposition Summary: 04/12/24 03:35 Hospitalization Ordered Notes: Hospitalization Status: Observation femi Provider: Bossman Turcios cha Condition: Stable femi Problem: new femi Symptoms: have improved femi Bed/Room Type: Standard femi Location: [facility] ER HOLD(04/12/24 15:32) jr12 Room Assignment: ERHOLD-(04/12/24 15:35) hb Diagnosis - Chest pain, unspecified femi - Type 2 diabetes mellitus with hyperglycemia femi - Essential (primary) hypertension femi - Myasthenia gravis femi Forms: - Medication Reconciliation Form femi - SBAR form femi - Leadership Thank You Letter femi Signatures: Dispatcher [employer] EDMS Joe Ortiz MD MD cha Baxter, Heather, RN RN Mikala Ag RN RN lg3 Ayesha Connelly [facility] Nino Whitt RN RN tm6 Jarrod Fernando RN RN bm8 Corrections: (The following items were deleted from the chart) 01:49 01:49 BASIC METABOLIC PANEL+C.LAB.BRZ ordered. EDMS EDMS 01:49 01:49 CBC+H.LAB.BRZ ordered. EDMS EDMS 01:49 01:49 HEPATIC FUNCTION+C.LAB.BRZ ordered. EDMS EDMS 01:49 01:49 MAGNESIUM+C.LAB.BRZ ordered. EDMS EDMS 01:49 01:49 PROBNP+C.LAB.BRZ ordered. EDMS EDMS 01:49 01:49 PROTIME (+INR)+COAG.LAB.BRZ ordered. EDMS EDMS 01:49 01:49 Troponin High Sensitivity+C.LAB.BRZ ordered. EDMS EDMS 01:49 01:49 LIPASE+C.LAB.BRZ ordered. EDMS EDMS 01:49 01:49 Urinalysis+U.LAB.BRZ ordered. EDMS EDMS 02:11 02:11 Angio Aorta For Dissection+CT.RAD.BRZ ordered. EDMS EDMS 03:41 03:35 Telemetry/MedSurg (Inpatient) femi lg3 03:41 03:35 femi lg3 04:15 04:15 Urine Culture+BA.LAB.BRZ ordered. EDMS EDMS 14:00 03:41 [facility] ER HOLD lg3 jr12 14:00 03:41 ERHOLD- 3 jr12 15:32 14:00 Telemetry/MedSurg (observation) jr12 jr12 15:32 14:00 205 jr12 jr12 15:35 15:32 hb
[2024-04-12] MEDS ORDERED: PANTOPRAZOLE 40 MG INJ ONE (04:16)
[2024-04-12] MEDS ORDERED: CEFTRIAXONE 1000 MG/VIAL ONE (04:16)
[2024-04-12] MEDS ORDERED: ONDANSETRON 4 MG/2 ML VIAL IV PRN (05:12)
[2024-04-12] MEDS ORDERED: ACETAMINOPHEN 325 MG TABLET PO PRN (05:12)
--- NOTE | 2024-04-12 05:17 | P.HP ---
Certification for Inpatient Patient admitted to: Observation With expected LOS: <2 Midnights Practitioner: I am a practitioner with admitting privileges, knowledge of patient current condition, hospital course, and medical plan of care. Services: Services provided to patient in accordance with Admission requirements found in Title 42 Section 412.3 of the Code of Federal Regulations Patient History Date of Service: 04/12/24 Reason for admission: Chest Pain History of Present Illness: 74 yrs old Male with past medical history of diabetes, hypertension, hyperlipidemia, myasthenia gravis, prostate cancer, CAD status post CABG and stents came to ER with chest pain. Started today with the chest pain located substernally without any radiation associated with palpitation and shortness of breath. Described as pressure-like feeling 4 out of 10 in severity, thought that it is indigestion but was brought to ER for rule out ACS. Patient denies any fever or chills. No nausea vomiting or diarrhea. At the time of interview patient is chest pain-free. Patient was assessed in the ER and is admitted for chest pain rule out ACS Allergies peanut Allergy (Verified 06/03/23 06:31) anaphylaxis/hives Home medications list reviewed: Yes Home Medications: Aspirin 325 mg PO DAILY 12/03/16 Gabapentin [Neurontin] 600 mg PO TID 12/03/16 Losartan/Hydrochlorothiazide [Losartan-Hctz 100-25 mg Tab] 1 each PO DAILY 12/03/16 Metoprolol Tartrate [Lopressor*] 50 mg PO BID 12/03/16 Bimatoprost [Lumigan Opthalmic Drops*] 1 drops OPTH BEDTIME 09/29/17 Brinzolamide [Azopt] 1 drop OPTH BID 09/29/17 Metformin ER [Glucophage ER*] 1,000 mg PO BID 09/29/17 Ubidecarenone/Vit E Acet [Co Q-10 100 mg Softgel] 1 each PO DAILY 09/29/17 Atorvastatin Calcium [Lipitor*] 40 mg PO DAILY 08/13/18 Magnesium Oxide [Magnesium] 400 mg PO DAILY 08/13/18 Meloxicam 7.5 mg PO DAILY 08/13/18 Omeprazole [Prilosec] 40 mg PO DAILY 08/13/18 Potassium Chloride 10 meq PO DAILY 08/13/18 Atorvastatin Calcium [Lipitor] 80 mg PO BEDTIME #30 tab 12/23/18 Clopidogrel Bisulfate [Plavix*] 75 mg PO DAILY #30 tablet 12/23/18 Nitroglycerin [Nitrostat*] 0.4 mg SL UD PRN tab 12/23/18 - Past Medical/Surgical History Diabetic: No Past Medical History: Reviewed- Non-Contributory -: DM2 -: CAD -: GLAUCOMA -: HYPERLIPIDEMIA -: HTN -: CARISA RENAL CYST -: Prostate Cancer S/P Radiation Sep 11 2017 Past Surgical History: Reviewed- Non-Contributory -: CABG -: CARPAL TUNNEL REPAIR -: NECK DISC SURGERY -: GANGALOID CYST REMOVAL X2 -: TONSILECTOMY - Family History Family History: Reviewed- Non-Contributory - Family History Mother -: Diabetes Notes: ALS Father -: Heart disease, Stroke, Cancer Notes: PROSTRATE CANCER Brother -: Heart disease, Diabetes, Stroke Sister Notes: "VEIN PROBLEMS" - Social History Smoking Status: Never smoker Alcohol use: No CD- Drugs: No Caffeine use: No Review of Systems 10-point ROS is otherwise unremarkable Physical Examination - Vital Signs Temperature: 97.2 F Blood Pressure: 142/60 Pulse: 78 Respirations: 18 Pulse Ox (%): 94 - Physical Exam General: Alert, In no apparent distress, Oriented x3 HEENT: Atraumatic, Normocephalic Neck: Supple, 2+ carotid pulse no bruit Respiratory: Clear to auscultation bilaterally, Normal air movement Cardiovascular: Regular rate/rhythm, Normal S1 S2 Capillary refill: <2 Seconds Gastrointestinal: Soft and benign, W/out hepatosplenomegaly, No tenderness Musculoskeletal: No clubbing, No swelling Integumentary: No rashes, No tenderness/swelling Neurological: Normal speech, Normal affect Lymphatics: No axilla or inguinal lymphadenopathy - Studies Laboratory Data (last 24 hrs) 04/12/24 04/12/24 04/12/24 02:01 02:01 02:01 WBC 4.30 Hgb 14.8 Hct 43.0 Plt Count 154 PT 9.9 INR 0.90 Sodium 140 Potassium 3.4 L BUN 15 Creatinine 0.88 Glucose 122 H Magnesium 2.4 Total Bilirubin 0.9 AST 12 L ALT 23 Alkaline Phosphatase 62 Lipase 132 H Assessment and Plan - Problems (Diagnosis) (1) Chest pain Onset Date: 12/04/16 Current Visit: No Status: Acute Plan: Unstable angina CAD with history of PCI and CABG Will trend cardiac enzymes Will monitor telemetry Started on aspirin and statin EKG did not show any acute changes suggestive of ischemia Patient denies any chest pain at present Will get an echocardiogram Cardiology consult Diabetes Insulin sliding scale Accu-Chek q. ACH S Hypertension Antihypertensives titrated Continue home medications and titrate as needed Hyperlipidemia Continue statin Hypokalemia Electrolytes monitor and replace accordingly History of prostate cancer On radiation GI/DVT prophylaxis Advanced directive full code Discharge Plan: Home Plan to discharge in: 24 Hours - Advance Directives Does patient have a Living Will: No Does patient have a Durable POA for Healthcare: No - Code Status/Comfort Care Code Status: Full Code Time Spent Managing Pts Care (In Minutes): 48
[2024-04-12] MEDS ORDERED: MORPHINE 4 MG/ML SYR IV PRN (05:41)
[2024-04-12] MEDS ORDERED: HYDRALAZINE HCL 20 MG/ML VIAL IV PRN (05:41)
[2024-04-12 06:25] VITALS: BMI 23.7
[2024-04-12] MEDS: ENOXAPARIN 40 MG/0.4 ML SQ SCH (09:00)
[2024-04-12] MEDS: ASPIRIN EC 81 MG TAB PO SCH (09:00)
[2024-04-12] MEDS ORDERED: ENOXAPARIN 40 MG/0.4 ML SQ ONE (10:14)
[2024-04-12] MEDS ORDERED: ASPIRIN EC 81 MG TAB PO ONE (10:14)
--- NOTE | 2024-04-12 12:20 | P.PN ---
Date of Service: 04/12/24 Patient seen and examined. He denies any chest pain at the moment. He reports intermittent progressive worsening chest pain last night. History of coronary artery disease, CABG 14 years ago. Last cardiac catheterization was about 5 years ago. Patient follows with Dr. Blair. Troponin x 2 negative. Patient is currently chest pain-free. Continue to trend troponin Aspirin, metoprolol, Lipitor Cardiology consulted.
[2024-04-12] MEDS: GABAPENTIN 400 MG CAP PO SCH (14:00)
--- NOTE | 2024-04-12 14:59 | CON ---
Date of Consultation: 04/12/2024 Reason For Consultation: Chest pain. History Of Present Illness: A 74-year-old male with history of diabetes, hypertension, dyslipidemia, coronary artery disease, status post double bypass surgery and stent placement, came to the ER with chest pain, substernal, no radiation, not related to exertion. No palpitation. No nausea, vomiting, diarrhea, or shortness of breath with it. There has been severity about 4/10 and completely resolve d. He has been chest pain-free since admission. Cardiac enzymes have been negative. Past Medical History: As outlined above in the HPI. Medications: Reviewed. Refer to reconciliation sheet for detailed list. Allergies: NO KNOWN DRUG ALLERGIES. Family History: No premature coronary artery disease or cancer. Social History: He does not smoke or drink. Does not use any drugs. Past Surgical History: Coronary artery bypass surgery and cardiac stents. Review of Systems: All systems were reviewed and they were negative except as mentioned in the HPI. Physical Examination: Vital signs: Reviewed. Head and Neck: Pupils are equal, reactive to light. Intact eye movements. No JVD. No cervical lym phadenopathy. Neck is supple. Thyroid is not enlarged. Lungs: Clear to auscultation bilaterally. No rhonchi, wheezing, or crackles. No accessory muscle u se. Heart: Regular rate and rhythm. No extra sounds. Abdomen: Soft, nontender. Bowel sounds positive. No organomegaly. No masses or hernia. No rigidi ty or rebound. Extremities: No edema, clubbing, or cyanosis. Intact pulses. Skin: No rash. No nodule. Neurologic: Alert, awake, oriented x3. No acute focal deficits appreciated. Lymph nodes: No cervical or axillary lymphadenopathy. Investigations: Cardiac enzymes x3 are negative. BUN is 15, creatinine 0.88, and hemoglobin is 14.8 . Assessment And Recommendations: 1.Chest pain, atypical with negative cardiac enzymes, but known history of coronary artery disease. He needs to follow up with his gusset ripper to plan for exercise nuclear stress test. From my persp ective, he can be released since he has been chest pain free to follow up with his primary cardiologi who is in [place] to obtain a stress test on him. The patient understands and agrees to the plan . 2.Hyperlipidemia. Continue atorvastatin 40 mg q.h.s. 3.Hypertension. His blood pressure is controlled. Continue home medications. From cardiology [facility], the patient can be released and follow up with his primary gusset ripper in [place] next week. SR/MODL Voice ID: [id number] Report ID: [id number]
[2024-04-12] MEDS: POTASSIUM CL SA 10 MEQ TAB PO ONE (15:23)
[2024-04-12] MEDS ORDERED: POTASSIUM CL SA 10 MEQ TAB PO ONE (15:24)
[2024-04-12] MEDS ORDERED: GABAPENTIN 400 MG CAP ONE (15:26)
--- NOTE | 2024-04-12 16:04 | P.DS ---
Admission Date: 04/12/24 Discharge Date: 04/12/24 Disposition: ROUTINE DISCHARGE Discharge Condition: FAIR Reason for Admission: Chest Pain - Problems (1) Chest pain Onset Date: 09/30/17 Current Visit: No Status: Acute (2) Status post coronary artery bypass graft Current Visit: No Status: Acute (3) Coronary artery disease Current Visit: No Status: Chronic Qualifiers: Coronary Disease-Associated Artery/Lesion type: [place] artery [place] vs. transplanted heart: [place] heart Associated angina: with unstable angina Qualified Code(s): I25.110 - Atherosclerotic heart disease of [place] coronary artery with unstable angina pectoris (4) Diabetes type 2, controlled Current Visit: No Status: Chronic Qualifiers: Diabetes mellitus moth exterminator insulin use: without shelter use Diabetes mellitus complication status: with circulatory complication Diabetes mellitus complication detail: with other circulatory complications Qualified Code(s): E11.59 - Type 2 diabetes mellitus with other circulatory complications Brief History of Present Illness: 74 yrs old Male with past medical history of diabetes, hypertension, hyperlipidemia, myasthenia gravis, prostate cancer, CAD status post CABG and stents came to ER due to chest pain. Patient reported onset of substernal chest pain overnight described as pressure-like sensation. He reported similar episodes which resolved with antacids. Patient reported chest pain resolved on arrival to the ED. Initial troponin was negative, EKG did not show any ischemic changes. Patient was hospitalized for ACS rule out. Hospital Course: He was placed under observation on the medical floor, troponin trended negative. Patient was chest pain-free during the hospital stay with stable vitals. He was evaluated by cardiology Dr. Orr. ACS ruled out. Dr. Orr recommend patient to follow-up with his assurance services manager health care Dr. Blair for further evaluation. Vital Signs/Physical Exam: Temp Pulse Resp BP Pulse Ox 98.0 F 53 16 138/69 95 04/12/24 07:47 04/12/24 07:47 04/12/24 07:47 04/12/24 07:47 04/12/24 07:47 General: Alert, In no apparent distress, Oriented x3 HEENT: Mucous membr. moist/pink Neck: Supple, JVD not distended Respiratory: Clear to auscultation bilaterally, Normal air movement Cardiovascular: No edema, Regular rate/rhythm, Normal S1 S2 Gastrointestinal: Normal bowel sounds, Soft and benign, Non-distended, No tenderness Musculoskeletal: No swelling, No tenderness Integumentary: No rashes, No cyanosis Neurological: Normal strength at 5/5 x4 extr Laboratory Data at Discharge: WBC 4.30 thou/uL (4.3-10.9) 04/12/24 02:01 Hgb 14.8 g/dL (13.6-17.9) 04/12/24 02:01 Hct 43.0 % (39.6-49.0) 04/12/24 02:01 Plt Count 154 thou/uL (152-406) 04/12/24 02:01 PT 9.9 SECONDS (9.5-12.5) 04/12/24 02:01 INR 0.90 04/12/24 02:01 Sodium 140 mEq/L (136-145) 04/12/24 02:01 Potassium 3.4 mEq/L (3.5-5.1) L 04/12/24 02:01 BUN 15 mg/dL (7-18) 04/12/24 02:01 Creatinine 0.88 mg/dL (0.70-1.30) 04/12/24 02:01 Glucose 122 mg/dL (74-106) H 04/12/24 02:01 Magnesium 2.4 mg/dL (1.6-2.4) 04/12/24 02:01 Total Bilirubin 0.9 mg/dL (0.2-1.0) 04/12/24 02:01 AST 12 U/L (15-37) L 04/12/24 02:01 ALT 23 U/L (16-61) 04/12/24 02:01 Alkaline Phosphatase 62 U/L (45-117) 04/12/24 02:01 Lipase 132 U/L (13-75) H 04/12/24 02:01 Home Medications: Aspirin 325 mg PO DAILY 12/03/16 Gabapentin [Neurontin] 400 mg PO TID 12/03/16 Losartan/Hydrochlorothiazide [Losartan-Hctz 100-25 mg Tab] 1 each PO DAILY 12/03/16 Metoprolol Tartrate [Lopressor*] 50 mg PO DAILY 12/03/16 Metformin ER [Glucophage ER*] 500 mg PO DAILY 09/29/17 Atorvastatin Calcium [Lipitor*] 40 mg PO DAILY 08/13/18 Potassium Chloride 10 meq PO DAILY 08/13/18 Baclofen 1 tab PO BEDTIME 04/12/24 Bimatoprost [[place] Opthalmic Drops*] 1 drop EACH EYE BEDTIME 04/12/24 Dorzolamide [Trusopt 2%*] 1 drop EACH EYE DAILY 04/12/24 Empagliflozin [Jardiance] 1 tab PO DAILY 04/12/24 Ferrous Sulfate 1 tab PO DAILY 04/12/24 Netarsudil Mesylate [Rhopressa] 1 drop EACH EYE BEDTIME 04/12/24 Pantoprazole [Protonix Tab*] 1 tab PO DAILY 04/12/24 Pyridostigmine [place] [Mestinon] 30 mg PO BID 04/12/24 Ubidecarenone [Co Q-10] 1 tab PO DAILY 04/12/24 azaTHIOprine [Azathioprine] 50 mg PO BID 04/12/24 predniSONE [Deltasone*] 1 tab PO DAILY 04/12/24 Diet: ADA Activity: Ad russell Followup: Justin Jasmine DO, DO [Primary Care Provider] - SUNSHINE BLAIR [OUTSIDE PHYSICIAN] - 1-2 Weeks Time spent managing pt's care (in minutes): 25
[2024-04-12 17:05] VITALS: BP 146/72; TEMP 97.6; O2SAT 97
--- NOTE | 2024-04-12 18:55 | RAD REPORT ---
EXAM DESCRIPTION: Angio Aorta For Dissection CLINICAL HISTORY: DISSECTION COMPARISON: None Available. TECHNIQUE: CTA of the chest, abdomen, and pelvis. Obtained following IV administration of iodinated contrast. 3-D/MIP reformatted images available. Mild motion artifact. This exam was performed accordi ng to our departmental dose-optimization program, which includes automated exposure control, adjustme nt of the mA and/or kV according to patient size and/or use of iterative reconstruction technique. FINDINGS: Chest: Pulmonary arteries: Contrast bolus is adequate.No filling defects identified in the pulmonary arterie s to suggest pulmonary embolus. Thyroid: No abnormalities of the visualized thyroid. Great Vessels: Great vessels have normal anatomic configuration. Thoracic Aorta: Normal caliber thoracic aorta with atherosclerotic calcification. No evidence of thor acic aortic dissection. Heart: Cardiomegaly. Coronary artery atherosclerosis. Prior median sternotomy. Lymph Nodes: No enlarged mediastinal lymph nodes identified. Esophagus: No abnormalities of the esophagus identified. Other: No additional findings. Lungs: Respiratory motion artifact. Mild bilateral dependent atelectasis. Likely mild air trapping re lated to low lung volumes. Pleura: No pleural effusion or pneumothorax. Trachea/Airways: No abnormalities of the visualized trachea or airways. Abdomen: Liver: Hepatomegaly. Gallbladder: No calcified gallstones. Spleen, Pancreas, and Adrenal Glands: Splenomegaly. The pancreas and adrenal glands are unremarkabl e. Kidneys: No hydronephrosis or obstructing ureteral calculus. Bilateral renal cysts. No follow-up imaging for these structures recommended. Vasculature: Normal caliber abdominal aorta with an line flow into the common iliac, external iliac, and common femoral arteries. Approximately 50% stenosis at the origin of the celiac artery. Mild osti al plaque at the origin of the SMA which is not flow-limiting. The RIGOBERTO is patent IVC is patent. The renal arteries are patent. No abdominal aortic dissection.. Stomach: Circumferential gastric wall thickening. Other: No free intraperitoneal air. No free fluid or lymphadenopathy. Pelvis: Bladder: Wall thickening of the urinary bladder. Bowel: No dilated loops of large or small bowel. Large amount stool. Appendix: Not well individually identified. Pelvis: Prostate is not enlarged. Bones: Mild endplate spondylosis and facet arthropathy. Osteoarthritic change of the hips. IMPRESSION: 1. No evidence of thoracic or abdominal aortic dissection. No pulmonary embolus. 2. Circumferential gastric wall thickening. These findings could be seen with gastritis. Follow-up endoscopy may be helpful. 3. Wall thickening of the urinary bladder. This could be seen with cystitis. 4. Hepatomegaly and splenomegaly. 5. Cardiomegaly with coronary artery atherosclerosis. Electronically signed by: Huang Latif DO 04/12/2024 04:08 AM CDT RP 4ZDM Due to temporary technical issues with the PACS/Fluency reporting system, reports are being signed by the in house radiologists without review as a courtesy to insure prompt reporting. The interpreting radiologist is fully responsible for the content of the report.
--- NOTE | 2024-04-12 19:03 | RAD REPORT ---
EXAM DESCRIPTION: Chest Single View CLINICAL HISTORY: CHEST PAIN COMPARISON: 12/18/2018 FINDINGS: Single frontal radiograph view of the chest. Cardiomediastinal silhouette: Atherosclerotic calcification of thoracic aorta. Heart is not enlarged. Prior median sternotomy. Leads overlie the chest. Lungs: No consolidation, pneumothorax, or pleural effusion. Bones: No acute osseous abnormality. Degenerative change of the spine and shoulders. Upper abdomen: No abnormality identified. IMPRESSION: 1. No acute pulmonary process identified. Electronically signed by: Huang Latif DO 04/12/2024 03:19 AM CDT 4ZDM Due to temporary technical issues with the PACS/Fluency reporting system, reports are being signed by the in house radiologists without review as a courtesy to insure prompt reporting. The interpreting radiologist is fully responsible for the content of the report.
[2024-04-12] MEDS ORDERED: BIMATOPROST OPHTH DROPS/2.5 ML BTL OPTH SCH (21:00)
[2024-04-12] MEDS ORDERED: BACLOFEN 10 MG TAB PO SCH (21:00)
[2024-04-12] MEDS ORDERED: ATORVASTATIN 40 MG TAB PO SCH (21:00)
[2024-04-12] MEDS ORDERED: AZATHIOPRINE 50 MG TABLET PO SCH (21:00)
[2024-04-12] MEDS ORDERED: PYRIDOSTIGMINE 60 MG TABLET PO SCH (21:00)
[2024-04-12] MEDS ORDERED: BIMATOPROST OPTH SCH (21:00)
[2024-04-12] MEDS ORDERED: HOME MED 1 EA UNK (Netarsudil Mesylate [Rhopressa] 2.5 ML Drops) OPTH SCH (21:00)
[2024-04-13] MEDS ORDERED: FERROUS SULFATE 325 MG TAB PO SCH (09:00)
[2024-04-13] MEDS ORDERED: ATORVASTATIN 20 MG TAB PO SCH (09:00)
[2024-04-13] MEDS ORDERED: METOPROLOL TAR 50 MG TAB PO SCH (09:00)
[2024-04-13] MEDS ORDERED: COENZYME Q10- 200 MG CAP PO SCH (09:00)
[2024-04-13] MEDS ORDERED: PANTOPRAZOLE 40MG TABLET PO SCH (09:00)
[2024-04-13] MEDS ORDERED: POTASSIUM CL SA 10 MEQ TAB PO SCH (09:00)
[2024-04-13] MEDS ORDERED: LOSARTAN/HCTZ 50-12.5 PO SCH (09:00)
[2024-04-13] MEDS ORDERED: HOME MED 1 EA UNK (Empagliflozin [Jardiance] 25 MG Tablet) PO SCH (09:00)
[2024-04-13] MEDS ORDERED: DORZOLAMIDE 2% OPTH (10 ML) EACH EYE SCH (09:00)
[2024-04-13] MEDS ORDERED: predniSONE 10 MG TAB PO SCH (09:00)
--- NOTE | 2024-04-13 14:56 | EKG ---
Test Date: 2024-04-12 Test Time: 01:50:01 Grain Weigher: JACK MEASUREMENT RESULTS: Intervals: Rate: 63 SC: 148 QRSD: 88 QT: 426 QTc: 435 [place]: P: 58 SC: 148 QRS: 7 T: 60 INTERPRETIVE STATEMENTS: Sinus rhythm with premature atrial complexes Possible Anterior infarct, age undetermined Abnormal ECG Compared to ECG 04/12/2024 01:49:33 No significant changes Electronically Signed On 04-13-24 14:51:43 CDT by Milan Orr
--- NOTE | 2024-04-13 14:56 | EKG ---
Test Date: 2024-04-12 Test Time: 01:49:33 Discharge Specialist: JACK MEASUREMENT RESULTS: Intervals: Rate: 66 WV: 156 QRSD: 88 QT: 414 QTc: 434 [place]: P: 56 WV: 156 QRS: 10 T: 63 INTERPRETIVE STATEMENTS: Sinus rhythm with premature atrial complexes Possible Anterior infarct, age undetermined Abnormal ECG Compared to ECG 12/18/2018 10:16:10 Atrial premature complex(es) now present Myocardial infarct finding now present Ventricular premature complex(es) no longer present ST (T wave) deviation no longer present Electronically Signed On 04-13-24 14:51:45 CDT by Milan Orr
== END 2024-04-12 16:47 | disposition home or self-care (01) ==
LOC: ER 01:42 → ERHOLD 05:12 → 2ND 15:02
PROVIDERS: ADMIT Family Medicine; ATTEND Internal Medicine
DX: R07.9 Chest pain, unspecified (principal); I25.10 Atherosclerotic heart disease of native coronary artery without angina pectoris; E11.59 Type 2 diabetes mellitus with other circulatory complications; I10 Essential (primary) hypertension; E87.6 Hypokalemia; E78.5 Hyperlipidemia, unspecified; G70.00 Myasthenia gravis without (acute) exacerbation; C61 Malignant neoplasm of prostate; Z95.1 Presence of aortocoronary bypass graft; Z95.5 Presence of coronary angioplasty implant and graft; Z91.010 Allergy to peanuts; Z79.82 Long term (current) use of aspirin; Z98.890 Other specified postprocedural states
CPT/HCPCS: 96365; 93005 ×2; 87088; 85025; 81001; 87086; 80048; 36415; 83735; 85610; 82947; 80076; 84484 ×3; 83690; 83880; 71275; 74175; 71045; 96375; 99285; Q9967; J7500; C9113; J1650; J7030; J0696; G0378 ×3